=== PATIENT | female | born 1990 | race Caucasian/White ===

== ENCOUNTER 2024-01-20 13:45 | Outpatient (CLI) | payer OTHER, SELFPAY | END 2024-01-20 13:46 | disposition home or self-care (01) | LOC: NFLDREF 13:48 | PROVIDERS: Visit Provider Obstetrics & Gynecology | DX: Z13.220 Encounter for screening for lipoid disorders (principal) | CPT/HCPCS: 80061 ==

== ENCOUNTER 2024-03-03 12:30 | Outpatient (REF) | payer OTHER, SELFPAY ==
[2024-03-03 13:14] LABS: HCG Quantitative* 17.21 mIU/mL
== END 2024-03-03 12:31 | disposition home or self-care (01) ==
LOC: NPINS 12:30
PROVIDERS: Obstetrics & Gynecology
DX: Z32.00 Encounter for pregnancy test, result unknown (principal)
CPT/HCPCS: 84702

== ENCOUNTER 2024-03-09 11:40 | Outpatient (CLI) | payer OTHER, SELFPAY ==
[2024-03-09 12:39] LABS: HCG Quantitative* < 2.39 mIU/mL
== END 2024-03-09 11:41 | disposition home or self-care (01) ==
PROVIDERS: Visit Provider Obstetrics & Gynecology
DX: Z32.00 Encounter for pregnancy test, result unknown (principal); N98.1 Hyperstimulation of ovaries
CPT/HCPCS: 36415; 84702

== ENCOUNTER 2024-06-01 10:14 | Outpatient (REF) | payer OTHER, SELFPAY | END 2024-06-01 10:15 | disposition home or self-care (01) | LOC: NPINS 10:14 | PROVIDERS: Visit Provider Obstetrics & Gynecology | DX: O09.811 Supervision of pregnancy resulting from assisted reproductive technology, first trimester (principal) | CPT/HCPCS: 84702 ==

== ENCOUNTER 2024-06-02 07:34 | Outpatient (CLI) | payer OTHER, SELFPAY ==
--- NOTE | 2024-06-02 08:00 | CRLHL7_ITS ---
For Patients: As a result of the Century Cures Act, medical imaging exams and procedure reports are released immediately into your electronic medical record. You may view this report before your referring provider. If you have questions, please contact your health care provider. INDICATION: Evaluate viability. IVF transfer with estimated date of delivery 01/27/2025 (gestational age 5 weeks 6 days). TECHNIQUE: Ultrasound OB pelvis transvaginal. Real-time blackburn-scale imaging of the pelvis was performed. COMPARISON: None available. FINDINGS: There is a single intrauterine gestation. The embryo demonstrates a regular cardiac rate measuring 97 beats per minute. The embryo`s crown rump length measurement of 0.2 cm corresponds to a gestational age of 5 weeks 5 days with a sonographic due date of 01/28/2025. There is a normal appearing yolk sac. There is no sign of perigestational hemorrhage. There is an irregular hypoechoic intramural fibroid along the left aspect of the uterine body measuring 1.3 x 1.1 x 1.3 cm. The ovaries are of normal size. Right ovary measures 3.0 x 1.9 x 1.6 cm and left ovary measures 3.3 x 2.1 x 1.4 cm. There are no suspicious fluid collections noted in the cul-de-sac. IMPRESSION: 1. Single intrauterine gestation with sonographic gestational age of 5 weeks 5 days. 2. bradycardia with heart rate of 97 beats per minute. Recommend attention on follow-up examinations. 3. Intramural uterine fibroid measuring 1.3 cm. Dictated by Xi Johns MD @ 06/02/2024 9:01:47 AM (Electronically Signed)
== END 2024-06-02 07:35 | disposition home or self-care (01) ==
LOC: US 07:35
PROVIDERS: Visit Provider Obstetrics & Gynecology
DX: O09.811 Supervision of pregnancy resulting from assisted reproductive technology, first trimester (principal); O34.11 Maternal care for benign tumor of corpus uteri, first trimester; D25.1 Intramural leiomyoma of uterus; Z3A.01 Less than 8 weeks gestation of pregnancy
CPT/HCPCS: 76817

== ENCOUNTER 2024-06-16 09:07 | Outpatient (CLI) | payer OTHER, SELFPAY ==
--- NOTE | 2024-06-16 09:15 | CRLHL7_ITS ---
For Patients: As a result of the Cures Act, medical imaging exams and procedure reports are released immediately into your electronic medical record. You may view this report before your referring provider. If you have questions, please contact your health care provider. INDICATION: f/u low heart tones COMPARISON: 06/02/2024 TECHNIQUE: Real-time blackburn-scale imaging of the pelvis was performed. FINDINGS: Sonographic imaging demonstrates a single living intrauterine gestation. The embryo demonstrates a regular cardiac rate measuring 178 beats per minute. The embryo`s crown-rump length measurement of 1.5 cm corresponds to a gestational age of 7 weeks 6 days with a sonographic due date of 01/27/2025. There is a normal-appearing yolk sac. There are no gross abnormalities noted within the embryo at this early state of development. The gestational sac has a normal appearance. There is a right inferior perigestational hemorrhage measuring 2.4 x 1.4 x 1.5 cm and a left inferior perigestational hemorrhage measuring 2.8 x 1.8 x 1.9 cm. The amount of fluid within the sac appears appropriate for gestational age. The cervix is closed. The myometrium appears normal. Normal right ovary. There are no suspicious fluid collections noted in the cul-de-sac. IMPRESSION: Single living intrauterine with sonographic gestational age 7 weeks 6 days and a sonographic due date of 01/27/2025. There are 2 inferior subchorionic hemorrhages measuring 2.4 cm and 2.8 cm. Dictated by Chris Soto MD @ 06/16/2024 10:54:34 AM (Electronically Signed)
== END 2024-06-16 09:08 | disposition home or self-care (01) ==
LOC: US 09:07
PROVIDERS: Visit Provider Obstetrics & Gynecology
DX: O36.8310 Maternal care for abnormalities of the fetal heart rate or rhythm, first trimester, not applicable or unspecified (principal); O20.9 Hemorrhage in early pregnancy, unspecified; Z3A.01 Less than 8 weeks gestation of pregnancy
CPT/HCPCS: 76817

== ENCOUNTER 2024-06-16 10:36 | Outpatient (CLI) | payer OTHER, SELFPAY | END 2024-06-16 10:37 | disposition home or self-care (01) | PROVIDERS: Visit Provider Registered Nurse | DX: Z34.01 Encounter for supervision of normal first pregnancy, first trimester (principal); E03.8 Other specified hypothyroidism; E06.3 Autoimmune thyroiditis; Z67.40 Type O blood, Rh positive | CPT/HCPCS: 84439; 84443; 86592; 86703; 86704; 86706; 86762; 86787; 86803; 86850; 86900; 86901; 87086; 87340; 87624 ==

== ENCOUNTER 2024-07-13 09:54 | Outpatient (CLI) | payer OTHER, SELFPAY | END 2024-07-13 09:55 | disposition home or self-care (01) | LOC: NFLDREF 07-17 04:10 | PROVIDERS: Visit Provider Obstetrics & Gynecology | DX: E03.8 Other specified hypothyroidism (principal); E06.3 Autoimmune thyroiditis | CPT/HCPCS: 84439; 84443 ==

== ENCOUNTER 2024-07-15 16:28 | Emergency (ER) | payer OTHER, SELFPAY ==
[2024-07-15 16:33] VITALS: BP 143/80; PULSE 94; RESP 20; TEMP 36.8; O2SAT 100; BMI 30.1
--- NOTE | 2024-07-15 16:38 | ED_ITS ---
HPI - General Time Seen by Provider: 16:38 Date Seen: 07/15/24 Chief complaint: Vaginal Bleeding Stated complaint: vaginal bleeding Time Seen by Provider: 07/15/24 16:30 Source: patient, RN notes reviewed and old records reviewed Mode of arrival: ambulatory Limitations: no limitations History of Present Illness HPI Narrative: This 34-year-old female is coming in with reddish 2 some pinkish vaginal discharge with current about 12 weeks estimated gestational age. Patient is a 2, did have 1 prior loss. She has had IVF for her pregnancies. This current has estimated due date of 01/27/2025. Patient notes that the vaginal bleeding started after she was straining to have a bowel movement. She has suffered with constipation since starting all of the medications in hormones for the IVF. She also has history of cervical cancer that was treated with conization and robotic assisted pelvic lymph node dissection, cervical cancer is FIGO stage IB1, has not completed any chemotherapy or radiation. She did have a normal Pap smear in June with this , endocervical canal sampling not done due to the . She is hypothyroid, did have her Synthroid adjusted and is being followed through this . She has went through 2 pads now, did just go to the bathroom and that is when she noted she had blood through the 2nd pad. It is reddish blood to sometimes pinkish. Symptoms just started this afternoon prior to arrival. No significant abdominal cramping, maybe a little pressure. No fevers or chills, no urinary symptoms. The pads that she has went through are mini pads. Related Data Home Medications ?Medication ?Instructions ?Recorded ?Confirmed cholecalciferol (vitamin D3) 125 125 mcg PO QDAY 01/20/24 07/13/24 mcg (5,000 unit) capsule docosahexaenoic acid 200 mg mg PO DAILY 01/20/24 07/13/24 capsule ( DHA) aspirin 81 mg tablet,delayed 81 mg PO QDAY 07/13/24 07/15/24 release pyridoxine (vitamin B6) 25 mg 25 mg PO QDAY 07/13/24 07/13/24 tablet Previous Rx's ?Medication ?Instructions ?Recorded scopolamine base 1 mg over 3 days 1 patch transdermal Q3D PRN motion 01/20/24 transdermal patch sickness #4 ea levothyroxine 175 mcg tablet 175 mcg PO QDAY #30 tabs 06/17/24 levothyroxine 150 mcg tablet 150 mcg PO QDAY #30 tabs 07/13/24 Allergies Allergy/AdvReac Type Severity Reaction Status Date / Time Nitrofuran Analogues Allergy Verified 07/13/24 09:12 sulfamethoxazole Allergy Verified 07/13/24 09:12 [From Bactrim] trimethoprim [From Bactrim] Allergy Verified 07/13/24 09:12 [facility] Medical History (Updated 07/15/24 @ 18:23 by Ila Magallon MD) Depression with anxiety ?F41.8 - Other specified anxiety disorders (ICD-10) Surgical History (Updated 07/13/24 @ 09:43 by Noni Drummond MD) H/O dilation and curettage ?Z98.890 - Other specified postprocedural states (ICD-10) H/O sentinel lymphadenectomy ?Z98.890 - Other specified postprocedural states (ICD-10) H/O cone biopsy of cervix ?Z98.890 - Other specified postprocedural states (ICD-10) Family History Other Breast cancer Diabetes High cholesterol Stroke Thyroid disease 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 What is your current living situation?: I presently have a place to live Problems where you live: no known problems In the past 12 months, utilities in danger of being shut off: no In past 12 months, lack of transportation kept you from medical appts, meetings, work, or getting things needed for daily living: no In the past 12 mos, have been you worried that your food would run out before you had money to buy more?: never true In the past 12 mos, the food you bought just didn't last and you didn't have money to buy more?: never true Smoking Status: Former smoker Do you use any of these nicotine containing products: Vaping Products Non-prescribed substance use: denies use How often does anyone, including family, friends and others, physically hurt you : never How often does anyone, including family, friends and others, insult or talk down to you: never How often does anyone, including family, friends and others, threaten you with harm: never How often does anyone, including family, friends and others, scream or curse at you: never Little interest or pleasure in doing things: not at all Feeling down, depressed, or hopeless: not at all Exam Const: Vital Signs, click to edit/add: Vital Signs - 24 hr 07/15/24 16:33 Temperature 98.3 F Pulse Rate [Pulse Oximeter] 94 Respiratory Rate 20 Blood Pressure [Ri ght Upper Arm] 143/80 H Pulse Oximetry 100 Oxygen Delivery Me thod Room Air This 34-year-old female he is ambulatory into the ED of her own accord. She is alert, interactive, no apparent distress but obviously is concerned. CV regular rate and rhythm, no murmur. Lungs clear anteriorly. Abdomen is soft, nontender, nondistended, no rebound or guarding. Pelvic exam deferred at this point. Documenting provider has reviewed patient's vital signs: yes Course Course ED Course: Discussed with patient that we will be ordering an ultrasound immediately. Reviewed with her that I will talk to obstetric so on-call regarding her case. She certainly may need pelvic examination but will await ultrasound in on conversation with OB before this is done. She is not having any profuse bleeding at this time that would require any IV resuscitation. Her blood type is O positive, antibody screen negative. No laboratory evaluation at this time but if bleeding is progressively worsening, will need to consider IV placement, fluid resuscitation and basic labs. Reevaluation(s) Time of Reevaluation #1: 18:20 Reevaluation #1: Patient is given a copy of the ultrasound, she states she is known to have fibroid in the uterus. She has a follow-up with OB next week, she is aware to return if of concerning signs and symptoms of bleeding or worsening. Consultations Consultation #1: Did call OB Dr. Aragon to review case with her. She is currently detained in a procedure, will call me back as soon as she is able. Reviewed with nursing staff that there is no urgency, we will obtain ultrasound, just want to review this case with her to make sure that nothing further needs to be done. 5:07 p.m.: Did speak with Dr. Aragon and reviewed this case. We are waiting the ultrasound results, she will plan on doing a speculum exam given the history. Per OB, no mass seen, no concerns on physical examination. We are still awaiting the formal reading of the ultrasound. Her prior ultrasound did have subchorionic hemorrhage. 6:18 p.m.: Did call Ob back, reviewed ultrasound report. She will talk to MFM or specialist in the near future, patient will be given a close interval follow- up per OB. Time: 16:51 Vital Signs Vital signs: Initial Vital Signs Temperature 98.3 F 07/15/24 16:33 Temperature Source Temporal Artery Scan 07/15/24 16:33 Pulse Rate 94 07/15/24 16:33 Respiratory Rate 20 07/15/24 16:33 Blood Pressure 143/80 H 07/15/24 16:33 Blood Pressure Mean 101 07/15/24 16:33 Pulse Oximetry 100 07/15/24 16:33 Oxygen Delivery Method Room Air 07/15/24 16:33 Vital Signs Temperature 98.3 F 07/15/24 16:33 Pulse Rate 94 07/15/24 16:33 Respiratory Rate 20 07/15/24 16:33 Blood Pressure 143/80 H 07/15/24 16:33 Pulse Oximetry 100 07/15/24 16:33 Oxygen Delivery Method Room Air 07/15/24 16:33 Temperature 98.3 F 07/15/24 16:33 Pulse Rate 94 07/15/24 16:33 Respiratory Rate 20 07/15/24 16:33 Blood Pressure 143/80 H 07/15/24 16:33 Pulse Oximetry 100 07/15/24 16:33 Oxygen Delivery Method Room Air 07/15/24 16:33 MDM - OB/Uterine Contractions Lab Data Attestation: I reviewed the patient's lab results. Labs: Lab Results 07/15/24 Range/Units 17:50 Vaginal Trichomonas No Trichomonas Seen (None Seen) Vaginal Yeast No Yeast Seen (None Seen) Vaginal Clue Cells No Clue Cells Seen (None Seen) Imaging Data US OB: Attestation: I have reviewed the pertinent imaging results. Radiologist's impression: Patient: URI HAMM Facility:?[facility] Patient ID:?[id number] Site Patient ID:?[id number]. Site :?[id number] Study:?US-OB Pelvis Transvaginal-07/15/2024 5:38:38 PM Ordering Physician:?Sherita Thorpe Final Report: Indication: bleeding in GIOVANNA: 01/27/2025 Technique: Real-time sonographic images of the pelvis were obtained transabdominally using grayscale, color, and Doppler imaging. Comparison: 06/16/2024, 06/02/2024. Findings: Cervix is closed, measuring 3.0 centimeter in length. Uterus: 3.0 x 2.7 x 2.4 centimeter mass is again seen in the lower uterine segment. Gestational sac: 2 small subchorionic hemorrhages are again seen. pole: [place]-rump length measures 5.8 centimeter, compatible with an average ultrasound age of 12 weeks 2 days. Yolk sac: Not visualized. heart rate: 163 beats/min. Right ovary: Not visualized. Left ovary: Size: 2.4 x 1.6 x 1.8 centimeter. Appearance: Normal morphology. No masses. Bladder: Visualized bladder is normal. Other: No free fluid. Impression: 1. Single live intrauterine with crown-rump length corresponding to 12 weeks 2 days. 2. 2 small subchorionic hemorrhages are again seen. 3. 3.0 x 2.7 x 2.4 centimeter mass is again seen in the lower uterine segment, which may represent a uterine fibroid; this previously measured 1.3 centimeter 06/02/2024. Recommend continued attention on follow-up given interval change since 06/02/2024. Dictated by Reese Cuenca MD @ 07/15/2024 6:09:58 PM (Electronic Signature) Discharge Plan Discharge Clinical Impression: Vaginal bleeding affecting early , Subchorionic hemorrhage in first trimester Patient Disposition: Home, Self-Care Condition: Stable Instructions: Subchorionic Hemorrhage (ED) Additional Instructions: Follow obstetric recommendations of no heavy lifting, no strenuous physical activity, pelvic rest. If the bleeding is increasing, have further concerns, please seek re-evaluation in the interim. Keep your OB appointment next week. Activity Level: No strenuous activity and Light activity Prescriptions: No Action DHA 200 mg capsule PO DAILY cholecalciferol (vitamin D3) 125 mcg (5,000 unit) capsule 125 mcg PO QDAY scopolamine base 1 mg over 3 days patch 3 day 1 patch transdermal Q3D PRN (Reason: motion sickness) Qty: 4 0RF aspirin 81 mg tablet,delayed release (DR/EC) 81 mg PO QDAY pyridoxine (vitamin B6) 25 mg tablet 25 mg PO QDAY levothyroxine 175 mcg tablet 175 mcg PO QDAY Qty: 30 0RF levothyroxine 150 mcg tablet 150 mcg PO QDAY Qty: 30 1RF Follow Up/Referrals: Provider,Not a Local [Primary Care Provider] - Stand Alone Forms: [employer] Info Instructions
--- NOTE | 2024-07-15 16:48 | CRLHL7_ITS ---
For Patients: As a result of the Century Cures Act, medical imaging exams and procedure reports are released immediately into your electronic medical record. You may view this report before your referring provider. If you have questions, please contact your health care provider. Indication: bleeding in GIOVANNA: 01/27/2025 Technique: Real-time sonographic images of the pelvis were obtained transabdominally using grayscale, color, and Doppler imaging. Comparison: 06/16/2024, 06/02/2024. Findings: Cervix is closed, measuring 3.0 centimeter in length. Uterus: 3.0 x 2.7 x 2.4 centimeter mass is again seen in the lower uterine segment. Gestational sac: 2 small subchorionic hemorrhages are again seen. pole: [place]-rump length measures 5.8 centimeter, compatible with an average ultrasound age of 12 weeks 2 days. Yolk sac: Not visualized. heart rate: 163 beats/min. Right ovary: Not visualized. Left ovary: Size: 2.4 x 1.6 x 1.8 centimeter. Appearance: Normal morphology. No masses. Bladder: Visualized bladder is normal. Other: No free fluid. Impression: 1. Single live intrauterine with crown-rump length corresponding to 12 weeks 2 days. 2. 2 small subchorionic hemorrhages are again seen. 3. 3.0 x 2.7 x 2.4 centimeter mass is again seen in the lower uterine segment, which may represent a uterine fibroid; this previously measured 1.3 centimeter 06/02/2024. Recommend continued attention on follow-up given interval change since 06/02/2024. Dictated by Reese Cuenca MD @ 07/15/2024 6:09:58 PM (Electronically Signed)
[2024-07-15 18:11] LABS: Clue Cells No Clue Cells Seen (None Seen); Trichomonas No Trichomonas Seen (None Seen); Yeast No Yeast Seen (None Seen)
--- NOTE | 2024-07-15 20:37 | PM.OBCN1 ---
OB - CN: HPI Date of Consult Date Seen: 07/15/24 Patient: [facility] Patient Consult date: 07/15/24 Primary Care Provider: Not a Local Provider Consult Narrative Narrative: Mary is a 34yo at 12w0d GA seen in the ED for vaginal bleeding. is complicated by a history of cervical cancer (stage 1B1, treated with conization at [facility]), IVF gestation, hypothyroidism, subchorionic hemorrhage. Child Day Care Teacher consult was requested in the setting of vaginal bleeding with her history of cervical cancer to complete pelvic exam. Brief history was affirmed, where Mary noted onset of pink discharge/fluid after straining to have a BM. She then noted onset of laureano vaginal bleeding, soaking about a half dollar size of a thin pad per hour. She notes no significant abdominal or pelvic pain. Denies abnormal vaginal discharge, itching or burning. Last intercourse was 3 days prior to onset of bleeding. She has no fevers/chills, nausea/vomiting. No new sexual partners. Prior to my presentation to the bedside, pelvic US was obtained. CRL is consistent with her GA, positive cardiac activity noted at 163bpm. Of note, on formal radiology read there is note of a 3cm lower uterine segment mass, which may represent a fibroid. Notably, it has increased in size from 1.3cm on 06/02/24. There was re-demonstration of two small subchorionic hemorrhages. Pelvic US impression: 1. Single live intrauterine with crown-rump length corresponding to 12 weeks 2 days. 2. 2 small subchorionic hemorrhages are again seen. 3. 3.0 x 2.7 x 2.4 centimeter mass is again seen in the lower uterine segment, which may represent a uterine fibroid; this previously measured 1.3 centimeter 06/02/2024. Recommend continued attention on follow-up given interval change since 06/02/2024. History History 2 Elective abortions Para 0 Spontaneous abortions 1 Hx # Term Pregnancies Ectopic pregnancies Hx # Pregnancies Multiple births Number of Living Children 0 PFSH PFSH Medical History (Updated 07/15/24 @ 18:23 by Ila Magallon MD) Depression with anxiety ?F41.8 - Other specified anxiety disorders (ICD-10) Surgical History (Updated 07/13/24 @ 09:43 by Noni Drummond MD) H/O dilation and curettage ?Z98.890 - Other specified postprocedural states (ICD-10) H/O sentinel lymphadenectomy ?Z98.890 - Other specified postprocedural states (ICD-10) H/O cone biopsy of cervix ?Z98.890 - Other specified postprocedural states (ICD-10) Family History Other Breast cancer Diabetes High cholesterol Stroke Thyroid disease 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 What is your current living situation?: I presently have a place to live Problems where you live: no known problems In the past 12 months, utilities in danger of being shut off: no In past 12 months, lack of transportation kept you from medical appts, meetings, work, or getting things needed for daily living: no In the past 12 mos, have been you worried that your food would run out before you had money to buy more?: never true In the past 12 mos, the food you bought just didn't last and you didn't have money to buy more?: never true Smoking Status: Former smoker Do you use any of these nicotine containing products: Vaping Products Non-prescribed substance use: denies use How often does anyone, including family, friends and others, physically hurt you: never How often does anyone, including family, friends and others, insult or talk down to you: never How often does anyone, including family, friends and others, threaten you with harm: never How often does anyone, including family, friends and others, scream or curse at you: never Little interest or pleasure in doing things: not at all Feeling down, depressed, or hopeless: not at all Meds Home Medications and Allergies Home Medications ?Medication ?Instructions ?Recorded ?Confirmed ?Type cholecalciferol (vitamin D3) 125 125 mcg PO QDAY 01/20/24 07/13/24 History mcg (5,000 unit) capsule docosahexaenoic acid 200 mg mg PO DAILY 01/20/24 07/13/24 History capsule ( DHA) aspirin 81 mg tablet,delayed 81 mg PO QDAY 10/07/24 10/09/24 History release pyridoxine (vitamin B6) 25 mg 25 mg PO QDAY 07/13/24 07/13/24 History tablet Allergies Allergy/AdvReac Type Severity Reaction Status Date / Time Nitrofuran Analogues Allergy Verified 07/13/24 09:12 sulfamethoxazole Allergy Verified 07/13/24 09:12 [From Bactrim] trimethoprim [From Bactrim] Allergy Verified 07/13/24 09:12 OB - H&P: Exam Physical Exam: Vital signs: Temp Pulse Resp BP Pulse Ox O2 Del Method 98.3 F 94 20 143/80 H 100 Room Air 07/15/24 16:33 07/15/24 16:33 07/15/24 16:33 07/15/24 16:33 07/15/24 16:33 07/15/24 16:33 Narrative: General: Alert and oriented, in no acute distress Psych: Appropriate mood and affect. Intermittently tearful. Abdomen: Soft, non-tender and non-distended Pelvic: External genital exam normal. Speculum inserted, small volume dark red blood noted in vaginal vault was evacuated with proctoswab x2. Cervix is visualized and appears unremarkable and closed. Specifically, there is no apparent mass/lesion or hyperemia, abnormal vessels of the ectocervix visualized. No active bleeding from os with valsalva. OB - CN: A/P Assessment and Plan (1) Subchorionic hemorrhage in first trimester: Status: Acute (2) Vaginal bleeding affecting early : Status: Acute (3) H/O cone biopsy of cervix: Problem details: Cold knife cone biopsy of cervix December 2022 Status: Acute (4) Cervical cancer, FIGO stage IB1: Problem details: Pap with HPV testing and endocervical curettage every 6 months until definitive surgery. Status: Acute Plan Mary is a 34yo seen at 12 weeks in the ED for first trimester bleeding. 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 US confirms viable fetus and re-demonstration of subchorionic hemorrhage. There is interval enlargement of a lower uterine segment mass vs fibroid, previously 1.3cm and now measuring 3.0cm. Pelvic exam is reassuring - where cervix is closed and there is no active bleeding coming from the os. There is no apparent cervical lass/lesion or concerning features. Pap test at [facility] was NIL/HPV negative, but ECC could not be performed in the setting of . We discussed the differential diagnosis of bleeding in early , including threatened miscarriage, subchorionic hemorrhage, vulvovaginal infection or recurrence of her cervical cancer. Given the enlarging mass/fibroid on US, I would recommend further characterization with pelvic MRI (non contrast due to ) to better evaluate given her history of cervical cancer with inability to complete ECC in . If concerning features are present, would refer back to [facility] Program Manager Environmental Planning Onc for discussion of further diagnostic evaluation though admittedly this could be limited in and no apparent ectocervical changes on my exam. I would recommend pelvic rest for the next 1 week so as to not incite further bleeding. Patient has upcoming MFM consultation at [facility] on 07/23. Offered close interval follow up in the clinic for FHR check, patient desires visit on 07/20 if available. Task sent. Strict return precautions were reinforced for heavy vaginal bleeding, pain, nausea/vomiting, fevers/chills.
== END 2024-07-15 18:44 | disposition home or self-care (01) ==
LOC: ED 18:40
PROVIDERS: Emergency Provider Family Medicine
DX: O46.8X1 Other antepartum hemorrhage, first trimester (principal); Z3A.12 12 weeks gestation of pregnancy
CPT/HCPCS: 76815; 76817; 87210; 99283; 99284

== ENCOUNTER 2024-07-18 17:31 | Emergency (ER) | payer OTHER, SELFPAY ==
[2024-07-18 17:36] VITALS: BP 134/90; PULSE 80; RESP 16; TEMP 36.9; O2SAT 100; BMI 30.1
--- NOTE | 2024-07-18 17:37 | ED_ITS ---
HPI - General Time Seen by Provider: 17:37 Date Seen: 07/18/24 Chief complaint: Vaginal Bleeding Stated complaint: bleeding - 12 wks Time Seen by Provider: 07/18/24 17:33 Source: patient and RN notes reviewed Mode of arrival: ambulatory Limitations: no limitations History of Present Illness HPI Narrative: This 34-year-old female is coming back in with recurrent vaginal bleeding today. 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 She stood up and felt the gush, went to the bathroom there was bright red blood and some clots. She was in the ER on 07/15/2024 with vaginal bleeding, Ob was consulted. This is an IVF , had 1 prior failed IVF . Her current estimated due date is 01/27/2025. When we saw her on the , she states she had no further bright red bleeding, settle to some pinkish and then brownish discharge and was gone by Saturday night. Today is now Saturday and bleeding has started again. She did have 2 small subchorionic hemorrhages. She had a live intrauterine . There was a probable fibroid in her lower uterine segment which she was aware of. She continues with constipation. She also has history of cervical cancer treated with conization and robotic assisted pelvic lymph node dissection, cervical cancer is FIGO stage I B1. She is not completed definitive therapy, no chemotherapy or radiation in lieu of wanting fertility and conception. Her Pap smear was normal in June with this but endocervical canal sampling was not done because of the . She is hypothyroid, Synthroid and lab monitoring has been appropriate thus far in . She did talk to Dr. Drummond whom is on-call, recommended re-evaluation for change in status. Patient has noted she has felt a little dizzy the last few days, not sure if it is just from or perhaps from blood loss. Patient's blood type is O positive with negative antibody screen. No abdominal pain. Related Data Home Medications ?Medication ?Instructions ?Recorded ?Confirmed cholecalciferol (vitamin D3) 125 125 mcg PO QDAY 01/20/24 07/13/24 mcg (5,000 unit) capsule docosahexaenoic acid 200 mg mg PO DAILY 01/20/24 07/13/24 capsule ( DHA) aspirin 81 mg tablet,delayed 81 mg PO QDAY 10/07/24 10/09/24 release pyridoxine (vitamin B6) 25 mg 25 mg PO QDAY 07/13/24 07/13/24 tablet Previous Rx's ?Medication ?Instructions ?Recorded scopolamine base 1 mg over 3 days 1 patch transdermal Q3D PRN motion 01/20/24 transdermal patch sickness #4 ea levothyroxine 175 mcg tablet 175 mcg PO QDAY #30 tabs 06/17/24 levothyroxine 150 mcg tablet 150 mcg PO QDAY #30 tabs 07/13/24 Allergies Allergy/AdvReac Type Severity Reaction Status Date / Time Nitrofuran Analogues Allergy Verified 07/18/24 17:48 sulfamethoxazole Allergy Verified 07/18/24 17:48 [From Bactrim] trimethoprim [From Bactrim] Allergy Verified 07/18/24 17:48 Review of Systems Status of ROS: Reports: 6 or more systems reviewed and unremarkable except as noted in History and below PFSH PFS Medical History Depression with anxiety ?F41.8 - Other specified anxiety disorders (ICD-10) Surgical History H/O dilation and curettage ?Z98.890 - Other specified postprocedural states (ICD-10) H/O sentinel lymphadenectomy ?Z98.890 - Other specified postprocedural states (ICD-10) H/O cone biopsy of cervix ?Z98.890 - Other specified postprocedural states (ICD-10) Family History Other Breast cancer Diabetes High cholesterol Stroke Thyroid disease 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 What is your current living situation?: I presently have a place to live Problems where you live: no known problems In the past 12 months, utilities in danger of being shut off: no In past 12 months, lack of transportation kept you from medical appts, meetings, work, or getting things needed for daily living: no In the past 12 mos, have been you worried that your food would run out before you had money to buy more?: never true In the past 12 mos, the food you bought just didn't last and you didn't have money to buy more?: never true Smoking Status: Former smoker Do you use any of these nicotine containing products: Vaping Products Non-prescribed substance use: denies use How often does anyone, including family, friends and others, physically hurt you : never How often does anyone, including family, friends and others, insult or talk down to you: never How often does anyone, including family, friends and others, threaten you with harm: never How often does anyone, including family, friends and others, scream or curse at you: never Little interest or pleasure in doing things: not at all Feeling down, depressed, or hopeless: not at all Exam Const: Vital Signs, click to edit/add: Vital Signs - 24 hr 07/18/24 17:36 Temperature 98.5 F Pulse Rate [Pulse Oximeter] 80 Respiratory Rate 16 Blood Pressure [Ri ght Upper Arm] 134/90 H Pulse Oximetry 100 Oxygen Delivery Me thod Room Air Danica is a 34-year-old female that is alert, interactive, no apparent distress, ambulatory into the ED of her own accord. Face atraumatic, speak in complete sentences. CV regular rate and rhythm, no murmur. Lungs clear anteriorly. Abdomen is soft, nontender, no rebound or guarding. Pelvic exam deferred at this point. Documenting provider has reviewed patient's vital signs: yes Course Course ED Course: Will check a CBC on her. Will get repeat pelvic ultrasound. Ob did do a pelvic exam on her when she was in on the and there was no visible mass. Negative vaginitis panel from 07/15. This could be repeat bleeding from subchorionic hemorrhage. Unlikely to be miscarriage should but new bleeding does need to be evaluated for that. Will make sure that we have a live intrauterine with ultrasound. We will see where her hemoglobin is. If she has increased active bleeding, may need to place IV and do fluid or possibly blood resuscitation. Reevaluation(s) Time of Reevaluation #1: 18:20 Reevaluation #1: Did review hemoglobin with patient. No abdominal pain, no bleeding at this time. Time of Reevaluation #2: 20:44 Reevaluation #2: Patient was just up to the bathroom, did have some more bleeding. She still has no abdominal pain. Reviewed with her that the ultrasound is showing increased size of that area in the lower uterine segment, still has the 2 small subchorionic hemorrhages. Unclear why this area in the lower uterine segment is increasing. She tells me that Dr. Aragon did speak he even with her oncologist on Saturday, they are recommending MRI but a more advanced MRI than what we can do here in our facility. Have discussed with patient that if her bleeding is not subsiding with relative bed rest, increases at all, I do recommend that she proceed to [place] as long as the bleeding is not heavy enough that she needs emergent intervention. She may need to have the MRI done more urgently if the bleeding is not stopping or starts to increase. Thankfully the fetus is still looking good, has good heartbeat. She is aware that I spoke with Dr. Drummond. Dr. Drummond has recommended she stop her aspirin in the interim. Consultations Consultation #1: Spoke with Dr. Drummond OB on-call. She is aware of this patient, she was able to tell me that they have spoken with [place] on her, MRI is to be scheduled. She would recommend stopping aspirin, relative bed rest at this point. We need to await MRI to be done, have no capacity to do it tonight. Patient clinically does not needed emergently. Time: 20:27 Vital Signs Vital signs: Initial Vital Signs Temperature 98.5 F 07/18/24 17:36 Temperature Source Temporal Artery Scan 07/18/24 17:36 Pulse Rate 80 07/18/24 17:36 Respiratory Rate 16 07/18/24 17:36 Blood Pressure 134/90 H 07/18/24 17:36 Blood Pressure Mean 104 07/18/24 17:36 Blood Pressure Position High-Fowlers 07/18/24 17:36 Pulse Oximetry 100 07/18/24 17:36 Oxygen Delivery Method Room Air 07/18/24 17:36 Vital Signs Temperature 98.5 F 07/18/24 17:36 Pulse Rate 80 07/18/24 17:36 Respiratory Rate 16 07/18/24 17:36 Blood Pressure 134/90 H 07/18/24 17:36 Pulse Oximetry 100 07/18/24 17:36 Oxygen Delivery Method Room Air 07/18/24 17:36 Temperature 98.5 F 07/18/24 17:36 Pulse Rate 80 07/18/24 17:36 Respiratory Rate 16 07/18/24 17:36 Blood Pressure 134/90 H 07/18/24 17:36 Pulse Oximetry 100 07/18/24 17:36 Oxygen Delivery Method Room Air 07/18/24 17:36 MDM - OB/Uterine Contractions Lab Data Attestation: I reviewed the patient's lab results. Lab results narrative: Patient's hemoglobin on 06/16/2024 was 13.7. Labs: Lab Results 07/18/24 Range/Units 17:56 WBC 8.27 (4.50-11.00) K/uL RBC 3.81 L (4.00-5.20) m/uL Hgb 11.7 L (12.0-16.0) gm/dL Hct 35.9 (33.0-51.0) % MCV 94 (80-100) fL MCH 31 (26-34) pg MCHC 33 (32-36) gm/dL RDW Coeff of [place] 11.8 (11.5-15.5) % Plt Count 282 (140-440) K/uL Neut % (Auto) 57.2 (42.0-72.0) % Lymph % (Auto) 32.9 (20-44) % [place] % (Auto) 7.6 (0.0-11.0) % Eos % (Auto) 1.5 (0.0-7.0) % Baso % (Auto) 0.4 (0.0-3.0) % Neut # (Auto) 4.74 (1.7-7.0) K/uL Lymph # (Auto) 2.72 (0.90-2.90) K/uL [place] # (Auto) 0.60 (0.00-0.90) K/UL Eos # (Auto) 0.12 (0.00-0.50) K/uL Baso # (Auto) 0.03 (0.00-0.30) K/uL Abs Immat Gran (auto) 0.03 (0.00-0.30) K/uL Imm/Tot Granulo (auto) 0.4 % Imaging Data US OB: Attestation: I have reviewed the pertinent imaging results. Radiologist's impression: Patient: URI HAMM Facility:?[facility] Patient ID:?[id number] Site Patient ID:?[id number]. Site :?[id number] Study:?US-OB Pelvis viability-07/18/2024 6:52:03 PM Ordering Physician:Jyothi Thorpe Final Report: INDICATION: Bleeding. COMPARISON: OB ultrasound 07/15/2024. TECHNIQUE: Real-time blcakburn-scale imaging of the pelvis was performed. FINDINGS: Sonographic imaging demonstrates a single living intrauterine gestation. The embryo has a regular cardiac rate measuring 159 beats per minute. The embryo`s crown-rump length measures 6.0 cm which corresponds to a gestational age of 12 weeks 3 days with sonographic due date 01/27/2025. There is a developing placenta. There is a 2.8 x 1.9 x 1.2 cm subchorionic hemorrhage in the right uterus and a 2.3 x 1.3 x 0.7 cm subchorionic hemorrhage in the left uterus. Persistent complex area in the lower uterine segment measuring 4.4 x 2.3 x 5.3 cm today compared to 3.0 x 2.7 x 2.4 cm previously. Color flow was not applied over this region. The uterus measures 13.4 x 8.8 x 10.0 cm. The ovaries were not visualized. No free fluid in the pelvic cul-de-sac. IMPRESSION: 1. Single living intrauterine gestation corresponding to an ultrasound gestational age of 12 weeks 3 days with sonographic due date 01/27/2025. 2. Two small subchorionic hemorrhages in the right and left uterus. 3. Persistent complex area in the lower uterine segment which has slightly increased in size since prior exam. This may represent an additional subchorionic hemorrhage but is indeterminate. Continued follow-up is recommended. Dictated by Usha Hoffmann MD @ 07/18/2024 8:25:19 PM (Electronic Signature) Discharge Plan Discharge Clinical Impression: Vaginal bleeding during Subchorionic hemorrhage Qualifiers: Trimester: first trimester Qualified Code(s): O20.8 - Other hemorrhage in early Patient Disposition: Home, Self-Care Condition: Stable Instructions: Subchorionic Hemorrhage (ED) Additional Instructions: Recommend relative rest, no work at this point. Continue to monitor bleeding. If bleeding is not slowing down with rest, increases at all, recommend going to [place] for further management and evaluation. Otherwise, if bleeding is slowing with resting and stopping the aspirin, work on Saturday to get your MRI scheduled. If there ever is any concern about heavy bleeding starting, please seek emergent evaluation at the nearest ER. Activity Level: No strenuous activity and Light activity Prescriptions: No Action DHA 200 mg capsule PO DAILY cholecalciferol (vitamin D3) 125 mcg (5,000 unit) capsule 125 mcg PO QDAY scopolamine base 1 mg over 3 days patch 3 day 1 patch transdermal Q3D PRN (Reason: motion sickness) Qty: 4 0RF aspirin 81 mg tablet,delayed release (DR/EC) 81 mg PO QDAY pyridoxine (vitamin B6) 25 mg tablet 25 mg PO QDAY levothyroxine 175 mcg tablet 175 mcg PO QDAY Qty: 30 0RF levothyroxine 150 mcg tablet 150 mcg PO QDAY Qty: 30 1RF Follow Up/Referrals: Provider,Not a Local [Primary Care Provider] - Stand Alone Forms: [employer] Info Instructions
--- NOTE | 2024-07-18 17:37 | CRLHL7_ITS ---
For Patients: As a result of the Cures Act, medical imaging exams and procedure reports are released immediately into your electronic medical record. You may view this report before your referring provider. If you have questions, please contact your health care provider. INDICATION: Bleeding. COMPARISON: OB ultrasound 07/15/2024. TECHNIQUE: Real-time blackburn-scale imaging of the pelvis was performed. FINDINGS: Sonographic imaging demonstrates a single living intrauterine gestation. The embryo has a regular cardiac rate measuring 159 beats per minute. The embryo`s crown-rump length measures 6.0 cm which corresponds to a gestational age of 12 weeks 3 days with sonographic due date 01/27/2025. There is a developing placenta. There is a 2.8 x 1.9 x 1.2 cm subchorionic hemorrhage in the right uterus and a 2.3 x 1.3 x 0.7 cm subchorionic hemorrhage in the left uterus. Persistent complex area in the lower uterine segment measuring 4.4 x 2.3 x 5.3 cm today compared to 3.0 x 2.7 x 2.4 cm previously. Color flow was not applied over this region. The uterus measures 13.4 x 8.8 x 10.0 cm. The ovaries were not visualized. No free fluid in the pelvic cul-de-sac. IMPRESSION: 1. Single living intrauterine gestation corresponding to an ultrasound gestational age of 12 weeks 3 days with sonographic due date 01/27/2025. 2. Two small subchorionic hemorrhages in the right and left uterus. 3. Persistent complex area in the lower uterine segment which has slightly increased in size since prior exam. This may represent an additional subchorionic hemorrhage but is indeterminate. Continued follow-up is recommended. Dictated by Usha Hoffmann MD @ 07/18/2024 8:25:19 PM (Electronically Signed)
[2024-07-18 18:02] LABS: Basophils Absolute Auto 0.03 K/uL (0.00-0.30); Basophils Percent Auto 0.4 % (0.0-3.0); Eosinophils Absolute Auto 0.12 K/uL (0.00-0.50); Eosinophils Percent Auto 1.5 % (0.0-7.0); Hematocrit 35.9 % (33.0-51.0); Hemoglobin* 11.7 gm/dL (12.0-16.0); Immature Granulocytes Abs Auto 0.03 K/uL (0.00-0.30); Immature Granulocytes Pct Auto 0.4 %; Lymphocytes Absolute Auto 2.72 K/uL (0.90-2.90); Lymphocytes Percent Auto 32.9 % (20-44); Mean Corpuscular HGB Conc 33 gm/dL (32-36); Mean Corpuscular Hemoglobin 31 pg (26-34); Mean Corpuscular Volume 94 fL (80-100); Monocytes Percent Auto 7.6 % (0.0-11.0); Neutrophils Absolute Auto 4.74 K/uL (1.7-7.0); Neutrophils Percent Auto 57.2 % (42.0-72.0); Platelet Count* 282 K/uL (140-440); RDW Coefficient of Variation % 11.8 % (11.5-15.5); Red Blood Count 3.81 m/uL (4.00-5.20); White Blood Count* 8.27 K/uL (4.50-11.00)
[2024-07-18 18:04] LABS: Slide Review Reflex No
[2024-07-18 20:55] VITALS: BP 124/78; PULSE 75; RESP 16; TEMP 36.9; O2SAT 100
[2024-07-18 20:56] VITALS: BP 124/78; PULSE 75; RESP 16; TEMP 36.9
== END 2024-07-18 20:56 | disposition home or self-care (01) ==
PROVIDERS: Emergency Provider Family Medicine
DX: O46.91 Antepartum hemorrhage, unspecified, first trimester (principal)
CPT/HCPCS: 36415; 76815; 85025; 99284

== ENCOUNTER 2024-08-10 09:09 | Outpatient (CLI) | payer OTHER, SELFPAY ==
--- NOTE | 2024-08-10 09:15 | CRLHL7_ITS ---
For Patients: As a result of the Century Cures Act, medical imaging exams and procedure reports are released immediately into your electronic medical record. You may view this report before your referring provider. If you have questions, please contact your health care provider. HISTORY: Follow-up subchorionic hemorrhage COMPARISON: Early OB ultrasound from 07/18/2024 TECHNIQUE: Ultrasound examination of the is performed with transabdominal technique. FINDINGS: A single intrauterine gestation is seen in breech presentation with regular cardiac activity at 152 beats per minute. The placenta is anterior and posterior and is free of the cervical os. There may be a succenturiate lobe of the placenta of posterior to the right. The placental grade is 0. The amniotic fluid volume is normal visually. There are 3 separate subchorionic hemorrhages, all of which have increased in size. The largest is in the lower uterine segment measuring 7.1 x 1.6 x 5.8 centimeters, previously 4.4 x 2.3 x 5.3 centimeters. There is a subchorionic hemorrhage superiorly to the right, measuring 4.0 x 1.2 x 2.9 centimeters, previously 2.8 x 1.9 x 1.2 centimeters. There is a left superior subchorionic hemorrhage measuring 4.0 x 2.0 x 1.2 centimeters, previously 2.3 x 1.3 x 0.7 centimeters. BPD: 3.3 cm 16 weeks 2 days HC: 12.6 cm 16 weeks 3 days AC: 10.2 cm 16 weeks 1 day, 69th percentile FL: 2.0 cm 15 weeks 6 days The estimated age by ultrasound is 16 weeks 1 day, with an estimated date of delivery of 01/24/2025. This correlates well with the clinical age of 15 weeks 5 days and the previous ultrasound. The ultrasound ratios are normal. Estimated weight is 140 grams which is at the 66th percentile based on the clinical dates. IMPRESSION: Single intrauterine gestation in breech presentation with regular cardiac activity. Estimated gestational age is 16 weeks 1 day. There has been appropriate interval growth. Estimated weight is 140 grams which is at the 66th percentile based on the clinical dates. Increase in size of 3 separate subchorionic hemorrhages as described above. Dictated by Reno Hernandes MD @ 08/10/2024 12:17:47 PM (Electronically Signed)
== END 2024-08-10 09:10 | disposition home or self-care (01) ==
LOC: US 09:09
PROVIDERS: Visit Provider Obstetrics & Gynecology
DX: O20.8 Other hemorrhage in early pregnancy (principal); O09.512 Supervision of elderly primigravida, second trimester; Z3A.15 15 weeks gestation of pregnancy
CPT/HCPCS: 76816

== ENCOUNTER 2024-08-10 09:40 | Outpatient (CLI) | payer OTHER, SELFPAY | END 2024-08-10 09:41 | disposition home or self-care (01) | LOC: NFLDREF 08-13 07:34 | PROVIDERS: Visit Provider Registered Nurse | DX: E03.8 Other specified hypothyroidism (principal); E06.3 Autoimmune thyroiditis | CPT/HCPCS: 84443 ==

== ENCOUNTER 2024-11-05 11:13 | Outpatient (CLI) | payer BC, SELFPAY | END 2024-11-05 11:14 | disposition home or self-care (01) | LOC: NFLDREF 11:14 | PROVIDERS: Visit Provider Obstetrics & Gynecology | DX: C53.9 Malignant neoplasm of cervix uteri, unspecified (principal); E03.8 Other specified hypothyroidism; E06.3 Autoimmune thyroiditis | CPT/HCPCS: 84439; 84443; 86592 ==

== ENCOUNTER 2024-12-01 07:20 | Outpatient (CLI) | payer BC, SELFPAY | END 2024-12-01 07:21 | disposition home or self-care (01) | LOC: US 07:21 | PROVIDERS: Visit Provider Obstetrics & Gynecology | DX: O09.813 Supervision of pregnancy resulting from assisted reproductive technology, third trimester (principal); Z3A.31 31 weeks gestation of pregnancy | CPT/HCPCS: 76816 ==

== ENCOUNTER 2024-12-31 10:14 | Outpatient (CLI) | payer BC, SELFPAY ==
[2025-01-01 12:28] LABS: Strep B DNA Probe POSITIVE (Negative)
[2025-01-01 12:47] LABS: Strep B Susceptibility Needed? No
== END 2024-12-31 10:15 | disposition home or self-care (01) ==
PROVIDERS: Visit Provider Obstetrics & Gynecology
DX: O09.813 Supervision of pregnancy resulting from assisted reproductive technology, third trimester (principal); O13.3 Gestational [pregnancy-induced] hypertension without significant proteinuria, third trimester; Z3A.36 36 weeks gestation of pregnancy
CPT/HCPCS: 87081; 87653

== ENCOUNTER 2025-01-04 07:13 | Outpatient (CLI) | payer BC, SELFPAY ==
--- NOTE | 2025-01-04 07:25 | CRLHL7_ITS ---
For Patients: As a result of the Century Cures Act, medical imaging exams and procedure reports are released immediately into your electronic medical record. You may view this report before your referring provider. If you have questions, please contact your health care provider. Indication: Assess growth. Assess well-being with a biophysical profile. Technique: Ultrasound examination of the gravid uterus was performed. The study is limited to biometry for growth evaluation and a standard biophysical profile. Comparison: December 01, 2024 Findings: Biophysical profile: The score is 6/8. Two points were deducted for decreased tone. There is a single living intrauterine gestation. Position is cephalic. The cervix was not visualized. The single deepest pocket is 7.3 centimeters. The placenta is anterior and there is no previa. heart rate ranges between 110 and 130 beats per minute Umbilical S/D ratio is 3.2. Less than 3.5 is considered normal. Biometry: BPD is 8.8 centimeters corresponding to 35 weeks and 2 days which is at the 24.8 percentile HC is 32.1 centimeters corresponding to 36 weeks and 2 days. This is at the 13.9 percentile AC is 30.1 centimeters corresponds to 34 weeks and 1 day. This is up to 4.7 percentile FL is 6.4 centimeters corresponds to 33 weeks and 0 days. This is at less than 3 percentile The FL/AC ratio is 21.2 percent. The HC/AC ratio is 1.1 age by ultrasound is 34 weeks and 5 days with an ultrasound estimated date of delivery of 02/10/2025. Current weight is 2354 grams which is at the 5.2 percentile Impression: 1. The biophysical profile score is 6/8. Two points were deducted for decreased tone during the time course of the exam. 2. There is a single live intrauterine that is cephalic. Cervix not visualized. Single deepest pocket 7.3 centimeters. Anterior placenta. No previa. 3. The placental S/D ratio is 3.2. Less than 3.5 is considered normal at this gestational age 4. heart rate ranged between 110 and 130 beats per minute 5. Biometry as above. 6. Current weight is 2354 grams which is at the 5.2 percentile, consistent with IUGR. Dictated by Oliver So MD @ 01/04/2025 8:35:15 AM (Electronically Signed)
== END 2025-01-04 07:14 | disposition home or self-care (01) ==
LOC: US 07:14
PROVIDERS: Visit Provider Obstetrics & Gynecology
DX: O09.523 Supervision of elderly multigravida, third trimester (principal); O36.5930 Maternal care for other known or suspected poor fetal growth, third trimester, not applicable or unspecified; O13.3 Gestational [pregnancy-induced] hypertension without significant proteinuria, third trimester; O26.873 Cervical shortening, third trimester; Z3A.36 36 weeks gestation of pregnancy
CPT/HCPCS: 76816; 76819; 76820; 82565; 82570; 84156; 84450; 84460

== ENCOUNTER 2025-01-04 08:16 | Outpatient (CLI) | payer BC, SELFPAY ==
[2025-01-04 17:47] LABS: Total Protein Urine 7 mg/dL
[2025-01-04 17:48] LABS: Creatinine Urine 121.1 mg/dL; Protein Creatinine Ratio Urine 0.06 (0-0.19)
== END 2025-01-04 08:17 | disposition home or self-care (01) ==
PROVIDERS: Obstetrics & Gynecology; Visit Provider Obstetrics & Gynecology
DX: O13.3 Gestational [pregnancy-induced] hypertension without significant proteinuria, third trimester (principal); Z3A.36 36 weeks gestation of pregnancy
CPT/HCPCS: 82565; 82570; 84156; 84450; 84460

== ENCOUNTER 2025-01-04 19:01 | Inpatient (IN) | payer BC, SELFPAY ==
[2025-01-04] VITALS (11 sets, daily range): BP systolic 128–154; BP diastolic 78–87; PULSE 63–82; TEMP 36.9–37.1; O2SAT 100; BMI 32.5
[2025-01-04] MEDS: miSOPROStoL 25 MCG/0.25 TABLET VAGINAL ×2 (20:35→23:46)
--- NOTE | 2025-01-04 21:15 | P.LDBA_ITS ---
Subjective History of Present Illness Date Seen: 01/04/25 Narrative: Patient is being admitted to Labor and Delivery for cervical ripening in preparation for labor induction secondary to IUGR with gestational hypertension, per ACOG guidelines. She is a 34 year old at 36 5/7 weeks gestation. Her full history and physical was dictated by me earlier today. Please see this for details. Specific Issues/Plans G 1 P 0 Baby boy! H&P by Dr. Headley on 01/04/2025. # New diagnosis of IUGR (EFW 5%) on 01/04/2025 - delivery indicated, will admit for cervical ripening on 01/04/2025 #Gestational HTN dx at 36w0d at [facility] w/ cerclage removal - Normal preE labs 12/30 at [facility] - 37 week IOL, scheduled 01/06 [x] Growth US and BPP on 01/04, repeat labs: Hgb 11.9, Platelets 228, AST 25, ALT 14, creatinine 0.6, urine P/C: [] # Cervical cancer 10/2022. FIGO stage 1B1 cervical cancer which was diagnosed in 2022 and treated at [facility] with conization and robotic assisted pelvic lymphadenectomy without chemotherapy or radiation. [id number] pap smears w/ ECC. * Pap completed at first OB. ECC was NOT completed with pap at first OB visit. -- ECC should NOT be completed during . * Colposcopy normal 07/24/2024. * Colposcopy w/ one biopsy on 11/05/24: Polypoid fragment of benign ectocervical mucosa. Negative for squamous intraepithelial and malignancy #Vaginal Bleeding ?BARB mass on US [x] AM discussed with her [place] Certified Endoscopy Technician Onc - concern is overall low but recommendations below [x] Colposcopy, biopsy of ANY suspicious lesion recommend by Certified Endoscopy Technician Onc: Colposcopy normal on 07/24/2024. [x] Pelvic MRI on T3 machine recommended (scheduled 07/27 locally but this is only 1.5T) -continuing subchorionic hemorrhage and a lesion in the lower uterine segment that was adjacent to the endocervix that was thought to represent uterine contraction during imaging. Cervix appeared normal. Lesion did not appear to be cervical neoplasia. [x] [place] MRI 08/14/24: area of mildly increased T2 signal within the left lower cervical os.... Does not have typical MRI features of a cervical carcinoma. Findings may reflect edematous changes from the recent cerclage placement as well as prior conization especially in the setting of normal colposcopy 1 month ago. Subchorionic hemorrhage was also noted. #short cervix due to prior cone biopsy * Wayne cerclage placed by Dr. Mercer 08/04/24. 6 knots at 12-1 o'clock. * Cerclage removed 12/30 at [facility] * *FYI they note cerclage was abnormal where they *think* it is all out, consider C/S if she does not dilate as anticipated* #FYI Vasovagals with cervical exam # IVF at [facility] in [place]. Unexplained infertility. On ASA, progesterone, estradiol; stopped E&P around 10 weeks. GIOVANNA based on embryo transfer: 01/27/25 Level 2 US - normal details below Echo on 10/13 was normal Growth US at 32 weeks - EFW 1672g at 15%ile, vertex, MVP 6.1cm Weekly NST starting at 36 weeks #Anxiety - started lexapro on 10/12 # AMA ASA 81mg ongoing as of 09/09 (held earlier due to bleeding) Genetic testing: completed prior to embryo transfer. Level 2 US # BMI 30.0, first , sister w/ h/o pre E Recommend daily baby ASA D/c on 07/18 due to 2 episode of bleeding PV that required evaluation in ED # Hypothyroidism. 200mcg levothyroxine. TSH and Free T4 Q trimester 06/16: TSH low at 0.015. T4 normal at 1.83. Decrease levothyroxine to 175 mcg. 07/13/24: TSH low at 0.056. Normal T4. Decreased dose to 150mcg. Recheck in 4 weeks. 08/10/24 2.120 11/05/24: TSH 1.95, normal T4 # Declined chlam/gc # Multiple large subchorionic hemorrhages * As of 08/10/24: 3 separate subchorionic hemorrhages, all of which have increased in size. The largest is in the lower uterine segment measuring 7.1 x 1.6 x 5.8 centimeters, previously 4.4 x 2.3 x 5.3 centimeters. There is a subchorionic hemorrhage superiorly to the right, measuring 4.0 x 1.2 x 2.9 centimeters, previously 2.8 x 1.9 x 1.2 centimeters. There is a left superior subchorionic hemorrhage measuring 4.0 x 2.0 x 1.2 centimeters, previously 2.3 x 1.3 x 0.7 centimeters. Ultrasounds: 07/23/24 [facility]. Recommendations included the following: * cell free DNA screening done on 07/23/24: negative, unknown sex * Colposcopy as scheduled in [place] * Patient is to have a prophylactic Shirodkar cerclage at [facility] by Dr. Mercer at ~15 weeks gestation * Level 2 US at 18-20 weeks at [facility] or [place] * 16-week US in [place] to f/u subchorionic hemorrhage 08/10/24: Finding of subchorionic hemorrhages as described above. 09/02/24 Level 2: Normal visualized anatomy. EFW 272 g at 49%ile. Anterior placenta, no previa. Three-vessel cord. MVP 3.4 cm. Cervix long/closed. 10/13/24: Normal echo 12/02/24: EFW 1672g at 15%ile, AC 15%ile, vertex, MVP 6.1cm 01/04/2025: BPP 6/8, SDP 7.3 cm, S/D ratio 3.2 (normal), BPD 25%, HC 14%, AC 4.7 %, FL <3%, EFW 5.2% Flu: 08/10/24 Covid: declines Tdap: 11/19/24 RSV: declines GBS (+): NKDA so recommend ampicillin for prophylaxis. OB - Problem Based A/P Delivery/Labor/Induction Plan Induction method: per misoprostol protocol OB Result Labs Blood Type: O (+) positive Rubella: immune RPR/VDLR: nonreactive GBS Status: positive HBsAG: negative OB Exam Physical Exam Vital signs: Temp Pulse BP Pulse Ox 98.5 F 71 135/87 100 01/04/25 20:41 01/04/25 20:40 01/04/25 20:40 01/04/25 19:19 Detailed Labor and Delivery Exam Patient Gravid: Yes Dilation (cm): 1 Cervix position: posterior Consistency: medium Fetus (Single) Amniotic Membrane Status: intact Heart Rate Baseline: 115 Monitor Accelerations: Present Monitor Decelerations: None Tax Processor Variability: Moderate (6-25)
[2025-01-04] MEDS: hydrOXYzine pamoate 25 MG CAPSULE 100 MG PO (23:46)
[2025-01-05] VITALS (21 sets, daily range): BP systolic 117–145; BP diastolic 63–86; PULSE 62–80; TEMP 36.9–37.6
[2025-01-05] MEDS: miSOPROStoL 25 MCG/0.25 TABLET VAGINAL ×3 (02:53→10:38)
[2025-01-05] MEDS: OMEPRAZOLE 20 MG CAPSULE DR PO (06:56)
[2025-01-05] MEDS: LEVOTHYROXINE 75 MCG TABLET 150 MCG PO (07:50)
--- NOTE | 2025-01-05 08:38 | PM.OBPNL ---
Subjective Time Seen by Provider: 07:15 Date Seen: 01/05/25 Narrative: Mary is a 34 yo woman at 36 6/7 weeks' gestation here for IOL for indication of IUGR in the setting of gestational hypertension. Thus far, she has had 3 doses of vaginal Cytotec for cervical ripening. She is not feeling strong contractions. She has no complaints. OB Problem List # New diagnosis of IUGR (EFW 5%) on 01/04/2025 #Gestational HTN dx at 36w0d at [facility] w/ cerclage removal - Normal preE labs 12/30 at [facility] # Cervical cancer 10/2022. FIGO stage 1B1 cervical cancer which was diagnosed in 2022 and treated at [facility] with conization and robotic assisted pelvic lymphadenectomy without chemotherapy or radiation. [id number] pap smears w/ ECC. #Vaginal Bleeding ?BARB mass on US [x] AM discussed with her [place] Veterinary Microbiologist Onc - concern is overall low but recommendations below [x] Colposcopy, biopsy of ANY suspicious lesion recommend by Veterinary Microbiologist Onc: Colposcopy normal on 07/24/2024. [x] Pelvic MRI on T3 machine recommended (scheduled 07/27 locally but this is only 1.5T) -continuing subchorionic hemorrhage and a lesion in the lower uterine segment that was adjacent to the endocervix that was thought to represent uterine contraction during imaging. Cervix appeared normal. Lesion did not appear to be cervical neoplasia. [x] [place] MRI 08/14/24: area of mildly increased T2 signal within the left lower cervical os.... Does not have typical MRI features of a cervical carcinoma. Findings may reflect edematous changes from the recent cerclage placement as well as prior conization especially in the setting of normal colposcopy 1 month ago. Subchorionic hemorrhage was also noted. #short cervix due to prior cone biopsy Wayne cerclage placed by Dr. Mercer 08/04/24. 6 knots at 12-1 o'clock. Cerclage removed 12/30 at [facility] *FYI they note cerclage was abnormal where they *think* it is all out, consider C/S if she does not dilate as anticipated* #FYI Vasovagals with cervical exam # IVF at [facility] in [place]. Unexplained infertility. On ASA, progesterone, estradiol; stopped E&P around 10 weeks. GIOVANNA based on embryo transfer: 01/27/25 Objective Exam: Gen - NAD Abd - Soft, NT, gravid SVE - 1 cm. Cervix is very anterior. The external os is firm and 1 cm. There is a space between external and internal os; I suspect that the outer cervix is scarred and the inner os is not, given the discrepancy in consistency. Length is thus difficult to determine. The internal os is softer but still only 1 cm. station is high, vertex. Notably, she has no vasovagal with this exam. Vital Signs: Last Vital Signs Temp 98.6 F 01/05/25 07:28 Pulse 62 01/05/25 07:29 BP 134/76 01/05/25 07:29 Pulse Ox 100 01/04/25 19:19 Comments: tracing: Baseline 120 / accelerations present / no decelerations / moderate variability. While frequent, small amplitude contractions are noted on monitor, these likely represent irritability; patient is not feeling these. Assessment Heart Rate Baseline: 115 Monitor Accelerations: Present Monitor Decelerations: None Tracing Comments: Category I GBS positive Labor Progress: Overall I must consider her cervix to still be unfavorable Maternal Status: Gestational HTN without severe features. Occasional mild elevations of BP continue. Normal HELLP labs at admit last night. Plan Plan: Fourth dose of vaginal Cytotec placed. Continuous monitoring. Begin ampicillin for GBS Repeat exam in 3 hours, likely for placement of another dose of Cytotec Repeat HELLP labs for any severe range BP.
[2025-01-05] MEDS: AMPICILLIN 2 GM in 0.9 % SODIUM CHLORIDE Mini-bag 100 ML IVPB (09:13)
[2025-01-05] MEDS: AMPICILLIN 1 GM in 0.9 % SODIUM CHLORIDE Mini-bag 100 ML IVPB ×3 (13:59→22:52)
--- NOTE | 2025-01-05 16:58 | PM.OBPNL ---
Subjective Time Seen by Provider: 16:15 Date Seen: 01/05/25 Narrative: Mary is a 34 yo woman at 36 6/7 weeks' gestation here for IOL for indication of IUGR in the setting of gestational hypertension. Thus far, she has had 5 doses of vaginal Cytotec for cervical ripening. She is not feeling strong contractions. She has no complaints. Of note, she has tolerated all cervical exams quite well. OB Problem List # New diagnosis of IUGR (EFW 5%) on 01/04/2025 #Gestational HTN dx at 36w0d at [facility] w/ cerclage removal - Normal preE labs 12/30 at [facility] # Cervical cancer 10/2022. FIGO stage 1B1 cervical cancer which was diagnosed in [address] [facility] with conization and robotic assisted pelvic lymphadenectomy without chemotherapy or radiation. [id number] pap smears w/ ECC. #Vaginal Bleeding ?BARB mass on US [x] AM discussed with her [place] Urban Redevelopment Specialist Onc - concern is overall low but recommendations below [x] Colposcopy, biopsy of ANY suspicious lesion recommend by Urban Redevelopment Specialist Onc: Colposcopy normal on 07/24/2024. [x] Pelvic MRI on T3 machine recommended (scheduled 07/27 locally but this is only 1.5T) -continuing subchorionic hemorrhage and a lesion in the lower uterine segment that was adjacent to the endocervix that was thought to represent uterine contraction during imaging. Cervix appeared normal. Lesion did not appear to be cervical neoplasia. [x] [place] MRI 08/14/24: area of mildly increased T2 signal within the left lower cervical os.... Does not have typical MRI features of a cervical carcinoma. Findings may reflect edematous changes from the recent cerclage placement as well as prior conization especially in the setting of normal colposcopy 1 month ago. Subchorionic hemorrhage was also noted. #short cervix due to prior cone biopsy Wayne cerclage placed by Dr. Mercer 08/04/24. 6 knots at 12-1 o'clock. Cerclage removed 12/30 at [facility] *FYI they note cerclage was abnormal where they *think* it is all out, consider C/S if she does not dilate as anticipated* # IVF at [facility] in [place]. Unexplained infertility. On ASA, progesterone, estradiol; stopped E&P around 10 weeks. GIOVANNA based on embryo transfer: 01/27/25 Objective Exam: Gen - NAD SVE - 1 cm. Cervix is very anterior. The external os is firm and 1 cm. There is a space between external and internal os; I suspect that the outer cervix is scarred and the inner os is not, given the discrepancy in consistency. Length is thus difficult to determine. The internal os is softer but still only 1 cm. station is high, vertex. Cook catheter was placed in aseptic technique. Initially, I attempted blind placement, but was unsuccessful. Thereafter, sterile speculum was placed and I visually placed catheter tip through the cervical os. Holding this in place, I removed the speculum and performed a vaginal exam. This revealed that the tip of the catheter was in the posterior fornix after passing through what I had perceived as the external os. There is a thickened band with the texture of vaginal tissue running from 2 to 7 o'clock along the left inferior cervix; it is as if the external cervix had previously torn away from the remaining endocervix. It is not bleeding. The catheter tip was reoriented anteriorly through the endocervix and inflated to 60 cc. I opted not to fill the ectocervical balloon and instead have the intrauterine balloon put on traction. Patient tolerated procedure with difficulty. Vital Signs: Last Vital Signs Temp 99 F 01/05/25 11:06 Pulse 74 01/05/25 15:07 BP 137/80 01/05/25 15:07 Pulse Ox 100 01/04/25 19:19 Comments: tracing: Baseline 130 / accelerations present / no decelerations / moderate variability. While frequent, small amplitude contractions are noted on monitor, these likely represent irritability; patient is not feeling these. Assessment Heart Rate Baseline: 115 Monitor Accelerations: Present Monitor Decelerations: None Tracing Comments: Category I GBS positive, on ampicillin Labor Progress: Her cervical anatomy is very abnormal. I believed that a portion of her ectocervix has detached from the endocervix and is now running in this band from 2-7 o'clock along the patient's left posterior cervix. This may have happened at the time of her cerclage removal or earlier, but it is not an acute tear, and is not actively bleeding. Maternal Status: Gestational HTN without severe features. Occasional mild elevations of BP continue. Normal HELLP labs at admit last night. Plan Plan: Am uncertain if her disrupted apparent ectocervix will dilate appropriately as her labor progresses. It may well effaced, stretch and dilate with the rest of the cervix. Alternatively, it may proved to be an obstruction to labor, or become disrupted during the labor process, leaving to cervical laceration and hemorrhage. I discussed the uncertainty of her case with her. I offered her now or continuation of cervical ripening with Cook catheter. When presented with these options, she opted to continue with cervical ripening. I will plan to leave the Cook catheter in place on traction for up to 12 hours. Again, intravaginal balloon was not inflated due to uncertainty on its impact on this disrupted band of appearance ectocervix. We will begin low-dose Pitocin for cervical ripening at 12:30 a.m.. The catheter is to be removed at 4:15 a.m., at which time we will begin Pitocin at the usual induction doses. I discussed her case with Dr. Aragon, who will be taking over care at 7:00 a.m.. We do have 2 units of blood typed and cross-matched in case of hemorrhage. Continuous monitoring. Continue ampicillin for GBS Repeat HELLP labs for any severe range BP.
[2025-01-05] MEDS: ACETAMINOPHEN 500 MG TABLET 1000 MG PO (19:52)
[2025-01-05] MEDS: ESCITALOPRAM 10 MG TABLET 20 MG PO (21:27)
[2025-01-05] MEDS: MORPHINE 10 MG/ML inj IM (22:51)
[2025-01-05] MEDS: hydrOXYzine pamoate 25 MG CAPSULE 100 MG PO (22:51)
[2025-01-06] VITALS (82 sets, daily range): BP systolic 98–172; BP diastolic 45–94; PULSE 58–95; RESP 16; TEMP 36.7–37.2; O2SAT 77–100
[2025-01-06] MEDS: OXYTOCIN 30 unit/500 ML in NS 30 UNIT/500 ML BAG IVPB (00:24)
[2025-01-06] MEDS: LACTATED RINGERS 1000 ML 1,000 ML 125 ML IV ×2 (02:54→11:37)
[2025-01-06] MEDS: AMPICILLIN 1 GM in 0.9 % SODIUM CHLORIDE Mini-bag 100 ML IVPB ×2 (04:00→07:56)
[2025-01-06 07:15] LABS: Hematocrit* 40.5 % (33.0-51.0); Hemoglobin* 13.3 gm/dL (12.0-16.0); Mean Corpuscular HGB Conc 33 gm/dL (32-36); Mean Corpuscular Hemoglobin 32 pg (26-34); Mean Corpuscular Volume 97 fL (80-100); Platelet Count* 217 K/uL (140-440); Red Blood Count* 4.18 m/uL (4.00-5.20); White Blood Count* 15.26 K/uL (4.50-11.00)
[2025-01-06 07:30] LABS: Alanine Aminotransferase* 17 U/L (4-35); Aspartate Amino Transferase* 35 U/L (12-35); Blood Urea Nitrogen* 12 mg/dL (5-24)
[2025-01-06 07:41] LABS: Slide Review Reflex No
[2025-01-06 07:49] LABS: INR 0.89 (0.91-1.10); Prothrombin Time 12.8 Seconds
[2025-01-06 07:50] LABS: Partial Thromboplastin Time* 29 Seconds (23-33)
[2025-01-06] MEDS: LEVOTHYROXINE 75 MCG TABLET 150 MCG PO (07:55)
[2025-01-06] MEDS: OMEPRAZOLE 20 MG CAPSULE DR PO (07:55)
[2025-01-06 08:24] LABS: Fibrinogen* 733 mg/dL (200-450)
[2025-01-06] MEDS: LABETALOL HCL 5 MG/ML inj IVP (08:55)
[2025-01-06] MEDS: MAGNESIUM IV 4 GM/100 ML PIGGYBACK IVPB (09:00)
[2025-01-06] MEDS: LIDOCAINE 2% (PF) 5 ML VIAL EPIDURAL (09:15)
[2025-01-06] MEDS: ROPIVACAINE 0.2% 100 ml 100 ML 10 MG EPIDURAL (09:15)
[2025-01-06] MEDS: MAGNESIUM Infusion 40 GM/1,000 ML IV.SOLN IVPB (09:31)
--- NOTE | 2025-01-06 09:32 | P.ANBPRC_ITS ---
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 What is your current living situation?: I presently have a place to live Problems where you live: no known problems In the past 12 months, utilities in danger of being shut off: no In past 12 months, lack of transportation kept you from medical appts, meetings, work, or getting things needed for daily living: no In the past 12 mos, have been you worried that your food would run out before you had money to buy more?: never true In the past 12 mos, the food you bought just didn't last and you didn't have money to buy more?: never true Smoking Status: Former smoker Do you use any of these nicotine containing products: Vaping Products Non-prescribed substance use: denies use How often does anyone, including family, friends and others, physically hurt you : never How often does anyone, including family, friends and others, insult or talk down to you: never How often does anyone, including family, friends and others, threaten you with harm: never How often does anyone, including family, friends and others, scream or curse at you: never Meds Home Medications and Allergies Home Medications ?Medication ?Instructions ?Recorded ?Confirmed ?Type cholecalciferol (vitamin D3) 125 125 mcg PO QDAY 01/20/24 01/04/25 History mcg (5,000 unit) capsule docosahexaenoic acid 200 mg mg PO DAILY 01/20/24 12/31/24 History capsule ( DHA) omeprazole 20 mg capsule,delayed 20 mg PO QDAY 08/10/24 01/04/25 History release aspirin 81 mg chewable tablet 81 mg PO QDAY 12/02/24 01/04/25 History Allergies Allergy/AdvReac Type Severity Reaction Status Date / Time Nitrofuran Analogues Allergy Verified 01/04/25 19:34 sulfamethoxazole (From Allergy Verified 01/04/25 19:34 Bactrim) trimethoprim (From Bactrim) Allergy Verified 01/04/25 19:34 Results Labs Labs: Laboratory Results - last 24 hr 01/06/25 07:07 WBC 15.26 H RBC 4.18 Hgb 13.3 Hct 40.5 MCV 97 MCH 32 MCHC 33 Plt Count 217 INR 0.89 L APTT 29 Fibrinogen 733 H BUN 12 AST 35 ALT 17 Vital Signs Vital Signs: Last Vital Signs Temp 98.9 F 01/06/25 00:38 Pulse 77 01/06/25 09:31 BP 136/80 01/06/25 09:31 Pulse Ox 96 01/06/25 09:29 Weight: 83.461 kg Height: 160.02 cm Anesthesia Procedures Epidural Insertion Patient Location: OB Start Time: 09:00 Stop Time: 09:40 Start Date: 01/06/25 Stop Date: 01/06/25 Reason for Block: primary anesthetic Patient Position: sitting Performed By: Guille Martinez Preanesthetic Checklist: IV checked, risks and benefits discussed, surgical consent, monitors and equipment checked, pre-op evaluation, timeout performed and anesthesia consent Prep: chlorhexidine gluconate Monitoring: blood pressure monitoring, quality assurance monitor final, continuous pulse oximetry and heart rate Approach: midline Vertebral Space: lumbar (1-5) Needle Type: Tuohy needle Injection Technique: continuous catheter (catheter) Needle gauge: 17 Needle Length (cm): 10 cm Needle Insertion Depth (cm): 5 Catheter Gauge: 19 Catheter Type: multi-orifice Catheter at skin depth (cm): 10 Test Dose Result: negative and lidocaine 1.5% with epinephrine 1 to 200,000
--- NOTE | 2025-01-06 10:31 | P.OBPN_ITS ---
Subjective Time Seen by Provider: 07:20 Date Seen: 01/06/25 Narrative: Mary is a 34yo at 37w0d GA ongoing IOL in the setting of growth restriction, gestational HTN, advanced maternal age, IVF , history of cervical cancer (status post conization), question of lower uterine segment mass early in with reassuring MRI at [facility] with her Band Top Maker Onc, history of shirodkar cerclage (status post removal at 36 weeks at [facility], some question of incomplete removal), hypothyroidism and anxiety. Mary is seen for routine rounding in cervical exam. Her induction course to present has included Cytotec vaginally x6, cook catheter placement with only the uterine balloon inflated to 60 mL and put traction overnight, and IV Pitocin. Bedside nurses notes she had bloody show with Cook removal and then an episode of a more bright red gush that did saturate a small pad at about 0630. Just prior to my presentation the bedside, she reported spontaneous rupture of membranes of clear fluid. Repeat labs were requested this morning in the setting of vaginal bleeding. Hemoglobin of 13.3, platelets of 217, INR is 0.89, a PTT of 29, fibrinogen of 733, Cr pending, AST 35 and ALT 17. Her blood pressures have been in the normal to mild range overnight. Denies headache, vision changes or right upper quadrant pain. Patient notes that her contractions are certainly more painful since SROM. She is considering analgesic methods, intends an epidural eventually. Limited review of systems otherwise negative. Objective Exam: General: Alert and oriented, no acute distress Psych: Appropriate mood and affect Cervix: External os palpates to be about 3 cm dilated likely represented by the disrupted portion previously described by Dr. Drummond, however her internal os is still only 1cm dilated. The internal os palpates like a small rubber band, does not feel like dense scar tissue nor can I palpate any appreciable suture material from her previous cerclage. My overall check is /-1. NST: Category 1 baseline of 120 beats per minute, moderate variability, several qualifying 15 x 15 accelerations present, absent decelerations. [place]: Painful contractions every 3 minutes Vital Signs: Last Vital Signs Temp 98.6 F 01/06/25 09:41 Pulse 81 01/06/25 10:21 BP 116/59 L 01/06/25 10:21 Pulse Ox 99 01/06/25 10:29 Assessment Heart Rate Baseline: 115 Monitor Accelerations: Present Monitor Decelerations: None Plan Plan: Mary is a 34yo at 37w0d GA ongoing IOL in the setting of growth restriction, gestational HTN, advanced maternal age, IVF , history of cervical cancer (status post conization), question of lower uterine segment mass early in with reassuring MRI at [facility] with her Band Top Maker Onc, history of shirodkar cerclage (status post removal at 36 weeks at [facility], some question of incomplete removal), hypothyroidism and anxiety. Induction course has included Cytotec x6, intrauterine balloon catheter and IV Pitocin. Her Pitocin is currently rounded rate of 12 milliunits per minute. SROM occurred at about 0700 this morning. Fortunately, Mary's cervical exam is noted to be unchanged. Her exam is certainly atypical, secondary to the likely detached portion of her ectocervix that was previously described by Dr. Drummond. Externally, it feels as though she may be 3 cm dilated but the internal os is still snug only 1cm dilated. I explained that her induction progress has been very atypical. I am concerned about the ability to adequately ripen her cervix despite Cytotec x6 and 12 hours with intrauterine balloon catheter. It is reassuring that SROM occurred, and Pitocin titration is ongoing. Still, given her history of cervical cold knife conization, cerclage, cortes of if the cerclage was completely removed and her abnormal course I think delivery is likely. I explained the strict definition for a failed induction of labor would include the above plus 24 hours of IV Pitocin and 18 hours with rupture of membranes. This time line would be at 0100 on 01/07/25. That said, I am concerned about her baseline risk for hemorrhage which is only increasing due to her prolonged induction course. Additionally, I question if prolonging her induction would be futile given the inability to affect dilation of the internal os at all since admission 36 hours ago. Mary agrees that she would not want to necessarily prolonged for induction to meet the strict criteria given the complexity of her care/delivery and risk for hemorrhage. After discussion, we mutually agree to continue IV Pitocin titration as tolerated for now. I am hopeful that if cervical dilation is going to occur that this will declare itself in the next few hours. Plan to recheck her cervix in about 4 hours, where if unchanged we will consider proceeding to . All questions answered.
[2025-01-06 10:43] LABS: Rapid Plasma Reagin (RPR) Non Reactive (Non Reactive)
[2025-01-06 11:15] LABS: Creatinine* 0.7 mg/dL (0.5-1.5); Est. Creatinine Clearance* 91.91; Estimated Glomerular Filt Rate 115 ml/min
--- NOTE | 2025-01-06 11:25 | PM.OBPNL ---
Subjective Time Seen by Provider: 11:40 Date Seen: 01/06/25 Narrative: Patient seen for routine exam. Since my last exam, she had sustained severe range blood pressures necessitating treatment with IV labetalol. She does meet criteria for preeclampsia with severe features, where magnesium sulfate was initiated for seizure prophylaxis. heart rate tracing has been intermittently category 2, with periods of minimal variability and intermittent late decelerations. As such, her Pitocin titration was reduced to half at 6 milliunits per minute at present. Patient notes she is feeling much better from a pain perspective status post epidural. She does not feel contractions at all. No ongoing vaginal bleeding. Objective Exam: General: Alert and oriented, no acute distress Cervix: Unchanged at /-1, where external os again feels more dilated and stretchy. No apparent change in dilation of the internal os, question if this simply represents scar tissue. NST: Category 2 with baseline of 130 beats per minute, minimal to moderate variability, rare 10x10 accelerations and intermittent late decelerations. Vital Signs: Last Vital Signs Temp 98.6 F 01/06/25 09:41 Pulse 63 01/06/25 11:22 BP 134/88 01/06/25 11:22 Pulse Ox 97 01/06/25 11:24 Assessment Heart Rate Baseline: 115 Monitor Accelerations: Present Monitor Decelerations: None Plan Plan: Mary is a 34yo at 37w0d GA ongoing IOL in the setting of growth restriction, gestational HTN now preE with SF, advanced maternal age, IVF , history of cervical cancer (status post conization), question of lower uterine segment mass early in with reassuring MRI at [facility] with her [facility], history of shirodkar cerclage (status post removal at 36 weeks at [facility], some question of incomplete removal), hypothyroidism and anxiety. Induction course has included Cytotec x6, intrauterine balloon catheter x12 hours, SROM and IV Pitocin. Unfortunately, her cervical exam remained unchanged with the internal os dilated to just 1 cm. I suspect that this represents dense scar tissue from her previous cold life conization, where I do not appreciate any retained suture from the cerclage. I explained that I do not have any other specific modalities to encourage cervical ripening. In addition, since our last exam her hypertensive disorder has progressed to preeclampsia with severe features. status changes been appreciated as well, where there is intermittent category 2 heart rate tracing for periods of minimal variability and intermittently decelerations. Her Pitocin has needed to be cut in half, bill category 2 at this time. Recommend we turn off Pitocin. I explained that I would recommend we proceed with a primary delivery in the setting of failed induction of labor with components of also worsening maternal and condition, given her pre with severe features and intermittent category 2 heart rate tracing. Strictly speaking, I did explain a failed induction time line could be considered to be prolonged for 18 hours of rupture but I do feel this would be futile in her case. Mary expresses understanding and is agreeable to plan. She feels at peace with the decision to proceed with , is happy she got to experience labor, SROM and really maximized her will options to encourage dilation. We discussed the risks, benefits and alternatives to primary in detail. I specifically counseled her about the risk of hemorrhage in a gravid uterus, which is also increased in her prolonged induction and possibly given her risk history of cervical cancer and lower uterine segment mass that was visualized earlier in . Of note, a pelvic MRI with her [place] gynecologic oncologist that was not concerning for recurrent cervical cancer. She had several colposcopies here, with 1 biopsy which was benign. Still, I explained potential etiologies behind hemorrhage and the medical and surgical steps we would utilize if encountered. We will aim to avoid Methergine in the setting of her preeclampsia with severe features. Plan to empirically administer 1 g of TXA time of delivery. We have 2 units of packed red blood cells cross-matched for Mary, she is agreeable to transfusion if needed. Discussed potential surgical steps if severe hemorrhage is encountered, where worse case scenario could include peripartum hysterectomy. In this rare event, we would aim to perform a complete total abdominal hysterectomy (rather than supracervical) given her history but again this would only be if conservative modalities fail. She expressed understanding and is agreeable to plan. With regard to antibiotics, plan to proceed with perioperative Ancef and azithromycin. Counseled on the risk of surgical site infection and deep pelvic infection after surgery. Counseled on the risk of damage to surrounding structures including uterus, tubes, ovaries, bowel, bladder, ureters and baby. All questions answered. Written surgical consent signed. PLATFORM OPERATIONS DIRECTOR to further consent patient for anesthetic component of care. Pediatrics [employer] to attend delivery in the setting of preeclampsia with severe features on magnesium and growth restriction. - Plan to proceed to the OR - Plan perioperative Ancef and azithromycin - Administer 1 g TXA IV at time of delivery - Blood type O positive, 2 units cross-matched and ready for transfusion if needed - Diligent blood pressure monitoring treatment ongoing. Last HELLP labs this morning with coags were within normal limits. Magnesium sulfate ongoing for seizure prophylaxis. - Pediatrics to attend delivery as above
[2025-01-06] MEDS: AZITHROMYCIN 500 MG in 0.9 % SODIUM CHLORIDE 250 ml 250 ML 255 MG IVPB (11:37)
[2025-01-06] MEDS: CEFAZOLIN 2 GM INJ IVP (12:00)
[2025-01-06] MEDS: TRANEXAMIC ACID 100 MG/ML INJ 1000 MG IV (12:21)
--- NOTE | 2025-01-06 13:03 | PM.OBPRCCS ---
Procedure Time Seen by Provider: 13:03 Date of procedure: 01/06/25 Post-op diagnosis: same Procedure Done: Global Will [facility] bill your pro fee for this procedure?: Yes Blood Loss Measurement Type: QBL ([id number]) Bakri Used: No IV fluids (mL): 900 Urine Output (mL): 75 Surgeon: Lien Aragon MD Anesthesia Type: Epidural Findings: Liveborn male fetus Unremarkable uterus, bilateral fallopian tubes and ovaries No apparent lower uterine segment/cervical mass that was previously described by US/MRI Procedure Name: Primary delivery Procedure Description: Patient was taken to the operating room with IV running. She received cefazolin and azithromycin in preoperative prophylaxis. Epidural anesthesia was previously administered and bolused. Gunter catheter was inserted. She was prepped and draped in the usual sterile fashion. Anesthesia was tested and found to be adequate. A low-transverse skin incision was made with a scalpel and carried through to the underlying layer of fascia with the scalpel. The subcutaneous fat was dissected off the underlying fascia with Bovie and blunt dissection. The fascia was nicked in the midline with a scalpel, and this incision was extended laterally with scissors. The rectus muscles were in the midline. Peritoneum was identified and entered bluntly. Bovie was used to widen this opening laterally. Sai O retractor was inserted and tightened down, providing excellent visualization of the lower uterine segment. The bladder reflection was advanced along the lower uterine segment. A bladder flap was created with a combination of sharp and blunt dissection. Low-transverse uterine incision was made with a scalpel. Incision was widened bluntly. The infant's head was grasped through the hysterotomy in OT position and elevated to the hysterotomy. The remainder of the body delivered without incident with the help of fundal pressure. No nuchal cord was noted. Cord was clamped and cut after 30 seconds. was handed off to attending nurses and DRAWER IN PLAIN LOOM. The placenta was delivered with gentle traction on the cord. IV TXA was requested and administered. IV Pitocin started. The uterus was cleaned of all clots and debris with the dry lap pad. The lower uterine segment was visually inspected due to US and MRI findings of a possible lower uterine segment mass earlier in her , visual inspection was unremarkable. The hysterotomy was reapproximated with 0 Vicryl in a running, locked fashion. Second layer of the same suture was used in imbricating fashion to obtain hemostasis. An additional [id number] suture was applied the left hysterotomy margin for additional hemostasis. Excellent uterine tone was noted, and hemostasis. The adnexa were examined and noted to be normal in appearance. The cul-de-sac and gutters were cleansed with dampened laparotomy sponge, removing any further clots and debris. The Sai O retractor was removed. The hysterotomy was reexamined and found to be hemostatic. The rectus muscles were examined and found to be hemostatic. The fascia was reapproximated with 0 Vicryl in a running fashion. Subcutaneous fat was irrigated and Bovie used on oozing vessels. The subcutaneous fat was reapproximated with 2 0 Vicryl suture in an interrupted fashion. The skin was closed with a subcuticular stitch of 3-0 monocryl. Surgical glue was applied above this. Patient tolerated procedure well was taken to recovery area in stable condition. Surgical debrief was completed. details: - Liveborn male fetus - No cord blood or gas was sent - weight: 5 lb 1oz - APGARs were 6 and 8 at 1 and 5 minutes respectively. Baby did receive PPV and CPAP intermittently for approximately 5 minutes post delivery. Please see documentation by JOSEFA Herron for complete details. Complications: None Pathology: specimen obtained, sent to pathology Surgery Debrief Performed: Yes Condition: stable Disposition: floor
--- NOTE | 2025-01-06 13:27 | P.ANES_ITS ---
Anesthesia Charges Start Date/Time Anesthesia Start Date: 01/06/25 Anesthesia Start Time: 11:54 Stop Date/Time Anesthesia Stop Date: 01/06/25 Anesthesia Stop Time: 13:20 Summary Emergency: POST ANESTHESIA CARE UNIT NURSE Coding CPT Codes CPT Codes: ANES/ANALG CS DELIVER ADD-ON - 13891 ([id number]) P2 - PATIENT W/MILD SYST DISEASE, QZ - POST ANESTHESIA CARE UNIT NURSE SVC W/O JUNIOR DESIGNER BY Additional Codes: Summary - Emergency: POST ANESTHESIA CARE UNIT NURSE ([id number])
--- NOTE | 2025-01-06 13:27 | W.ANESCHARGE ---
Anesthesia Charges Start Date/Time Anesthesia Start Date: 01/06/25 Anesthesia Start Time: 11:54 Stop Date/Time Anesthesia Stop Date: 01/06/25 Anesthesia Stop Time: 13:20 Summary Emergency: DIRECTOR TRANSLATIONAL Coding CPT Codes CPT Codes: ANES/ANALG CS DELIVER ADD-ON - 54852 ([id number]) P2 - PATIENT W/MILD SYST DISEASE, QZ - DIRECTOR TRANSLATIONAL SVC W/O MANAGER SOCIAL MEDIA BY Additional Codes: Summary - Emergency: DIRECTOR TRANSLATIONAL ([id number])
[2025-01-06 15:08] LABS: Hematocrit* 31.6 % (33.0-51.0); Hemoglobin* 10.7 gm/dL (12.0-16.0); Mean Corpuscular HGB Conc 34 gm/dL (32-36); Mean Corpuscular Hemoglobin 32 pg (26-34); Mean Corpuscular Volume 96 fL (80-100); Platelet Count* 191 K/uL (140-440); Red Blood Count* 3.31 m/uL (4.00-5.20); White Blood Count* 16.83 K/uL (4.50-11.00)
[2025-01-06 15:25] LABS: Blood Urea Nitrogen* 11 mg/dL (5-24); Creatinine* 0.6 mg/dL (0.5-1.5); Est. Creatinine Clearance* 107.23; Estimated Glomerular Filt Rate 119 ml/min
[2025-01-06 15:26] LABS: Alanine Aminotransferase* 16 U/L (4-35); Aspartate Amino Transferase* 32 U/L (12-35); Slide Review Reflex No
[2025-01-06 15:39] LABS: Magnesium* 4.8 mg/dL (1.5-2.6)
[2025-01-06] MEDS: NIFEdipine ER 30 MG TAB PO (16:18)
[2025-01-06] MEDS: KETOROLAC 30 MG/ML inj IVP (18:58)
[2025-01-06] MEDS: ESCITALOPRAM 10 MG TABLET 20 MG PO (18:58)
[2025-01-06 21:00] LABS: Hemoglobin* 10.5 gm/dL (12.0-16.0); Mean Corpuscular HGB Conc 34 gm/dL (32-36); Mean Corpuscular Hemoglobin 32 pg (26-34); Mean Corpuscular Volume 95 fL (80-100); Platelet Count* 209 K/uL (140-440); Red Blood Count* 3.25 m/uL (4.00-5.20); White Blood Count* 19.34 K/uL (4.50-11.00)
[2025-01-06 21:07] LABS: Slide Review Reflex No
[2025-01-06 21:21] LABS: Alanine Aminotransferase* 23 U/L (4-35); Aspartate Amino Transferase* 35 U/L (12-35); Blood Urea Nitrogen* 9 mg/dL (5-24); Creatinine* 0.6 mg/dL (0.5-1.5); Est. Creatinine Clearance* 107.23; Estimated Glomerular Filt Rate 119 ml/min
[2025-01-06 21:47] LABS: Magnesium* 5.4 mg/dL (1.5-2.6)
[2025-01-06] MEDS: ACETAMINOPHEN 500 MG TABLET 1000 MG PO (22:06)
[2025-01-06] MEDS: OXYCODONE 5 MG TABLET PO (22:06)
[2025-01-07] VITALS (10 sets, daily range): BP systolic 102–145; BP diastolic 62–82; PULSE 73–88; RESP 16; TEMP 36.4–36.8; O2SAT 96–99
[2025-01-07] MEDS: KETOROLAC 30 MG/ML inj IVP ×4 (01:03→18:57)
[2025-01-07 03:39] LABS: Hemoglobin* 9.9 gm/dL (12.0-16.0); Mean Corpuscular HGB Conc 34 gm/dL (32-36); Mean Corpuscular Hemoglobin 33 pg (26-34); Mean Corpuscular Volume 96 fL (80-100); Platelet Count* 192 K/uL (140-440); Red Blood Count* 3.02 m/uL (4.00-5.20); White Blood Count* 15.78 K/uL (4.50-11.00)
[2025-01-07 03:44] LABS: Slide Review Reflex No
[2025-01-07 03:54] LABS: Blood Urea Nitrogen* 8 mg/dL (5-24); Creatinine* 0.6 mg/dL (0.5-1.5); Est. Creatinine Clearance* 107.23; Estimated Glomerular Filt Rate 119 ml/min
[2025-01-07] MEDS: ACETAMINOPHEN 500 MG TABLET 1000 MG PO ×4 (03:54→23:27)
[2025-01-07] MEDS: OXYCODONE 5 MG TABLET PO ×3 (03:54→23:27)
[2025-01-07 03:55] LABS: Alanine Aminotransferase* 15 U/L (4-35); Aspartate Amino Transferase* 30 U/L (12-35)
[2025-01-07 04:01] LABS: Magnesium* 6.3 mg/dL (1.5-2.6)
[2025-01-07] MEDS: LACTATED RINGERS 1000 ML 1,000 ML 75 ML IV ×2 (04:07→11:18)
[2025-01-07] MEDS: MAGNESIUM Infusion 40 GM/1,000 ML IV.SOLN IVPB (05:31)
[2025-01-07] MEDS: OMEPRAZOLE 20 MG CAPSULE DR PO (06:59)
[2025-01-07] MEDS: LEVOTHYROXINE 75 MCG TABLET 150 MCG PO (07:00)
--- NOTE | 2025-01-07 07:45 | PM.OBPNVD1 ---
OB - PN:Subj Subjective Time Seen by Provider: 08:11 Date Seen: 01/07/25 Patient comments OB post-: pain well controlled and tolerating diet status: feeding status: exclusively Narrative: HPI: Mary is POD#1 from a primary LTCS for a failed IOL for gestational htn. Her BP became elevated , meeting criteria for preeclampsia with severe features. She is currently on Magnesium sulfate for seizure prophylaxis which is due to be discontinued at approximately 12:30Pm today. She is doing well on magnesium. She is nifedipine ER daily and BP has been under good control on this medication. Preeclampsia labs have all been normal. Pain is well controlled on current medications. She is tolerating a regular diet, not passing flatus and has ambulated a small amount in her room. She is . Denies nausea and bloating. No headache, right upper quadrant pain, visual disturbance or swelling. She states that she does feel tired on the magnesium but otherwise is doing well. OB - PN: Obj Exam Physical Exam: Vital signs: Temp Pulse Resp BP Pulse Ox O2 Del Method 97.6 F 77 16 104/62 97 Room Air 01/07/25 04:11 01/07/25 06:20 01/07/25 06:20 01/07/25 06:20 01/07/25 06:20 01/07/25 06:20 Narrative: General: Pleasant, , well groomed woman in no acute distress. Vital signs: Included in her electronic medical record. Heart: Regular rate and rhythm without gallop, rub or murmur. Chest: Clear to auscultation bilaterally. Abdomen: Soft, nontender and nondistended with normal bowel sounds throughout. Fundus firm at 2 cm below the umbilicus in the midline. Incision: Dressing in place and is clean, dry and intact. After dressing removed: Incision is clean, dry and intact with sutures and skin adhesive gel. Extremities: No pain. Edema: None. Neurologic: Deep tendon reflexes at bilateral patella are 2+/2 without clonus. OB - PN: Obj Data Labs Labs: Laboratory Results - last 24 hr 01/04/25 01/06/25 01/06/25 20:10 07:07 15:02 WBC 16.83 H RBC 3.31 L Hgb 10.7 L Hct 31.6 L MCV 96 MCH 32 MCHC 34 Plt Count 191 INR 0.89 L APTT 29 Fibrinogen 733 H BUN 11 Creatinine 0.7 0.6 Estimated Creat Clear 91.91 107.23 Estimated GFR 115 119 Magnesium 4.8 H* AST 32 ALT 16 RPR Screen Non Reactive Crossmatch (AHG) See Detail 01/06/25 01/07/25 20:55 03:05 WBC 19.34 H 15.78 H RBC 3.25 L 3.02 L Hgb 10.5 L 9.9 L Hct 31.0 L 29.0 L MCV 95 96 MCH 32 33 MCHC 34 34 Plt Count 209 192 INR APTT Fibrinogen BUN 9 8 Creatinine 0.6 0.6 Estimated Creat Clear 107.23 107.23 Estimated GFR 119 119 Magnesium 5.4 H* 6.3 H* AST 35 30 ALT 23 15 RPR Screen Crossmatch (AHG) OB - PN: A/P Delivery Assessment and Plan (1) Severe preeclampsia: Status: Acute Assessment and Plan: 1. Discontinue magnesium sulfate at approximately 12:30 p.m. today. 2. Continue nifedipine ER 30 mg daily. 3. Would repeat preeclampsia labs only if blood pressure increases after the magnesium was turned off as all of the labs have been normal in the last 24 hours. 4. Continue postoperative care. 5. consultation if patient requests. 6. Plan on discharge home tomorrow 01/08/2025 or Saturday01/09/2025 (2) Anemia due to acute blood loss: Status: Acute Assessment and Plan: 1. Iron supplement 1 tablet by mouth every other day ordered.
[2025-01-07] MEDS: DOCUSATE SODIUM 100 MG CAPSULE PO (08:56)
[2025-01-07] MEDS: FERROUS SULFATE 325 MG TABLET PO (08:56)
[2025-01-07] MEDS: NIFEdipine ER 30 MG TAB PO (08:57)
[2025-01-07 09:12] LABS: Hematocrit* 29.6 % (33.0-51.0); Mean Corpuscular HGB Conc 34 gm/dL (32-36); Mean Corpuscular Hemoglobin 33 pg (26-34); Mean Corpuscular Volume 96 fL (80-100); Platelet Count* 208 K/uL (140-440); Red Blood Count* 3.08 m/uL (4.00-5.20); White Blood Count* 16.49 K/uL (4.50-11.00)
[2025-01-07 09:25] LABS: Slide Review Reflex No
[2025-01-07 09:29] LABS: Blood Urea Nitrogen* 8 mg/dL (5-24); Creatinine* 0.6 mg/dL (0.5-1.5); Est. Creatinine Clearance* 107.23; Estimated Glomerular Filt Rate 119 ml/min
[2025-01-07 09:30] LABS: Alanine Aminotransferase* 16 U/L (4-35); Aspartate Amino Transferase* 32 U/L (12-35)
[2025-01-07 09:39] LABS: Magnesium* 6.7 mg/dL (1.5-2.6)
--- NOTE | 2025-01-07 10:27 | PM.ANPOST ---
Post Anesthesia Note Post Anesthesia Note Patient seen: Inpatient Respiratory Status: adequate Cardiovascular Status: adequate Mental Status: baseline Pain: adequate Temp: baseline Anesthetic awareness: N/A Complications: none Follow care: none
[2025-01-07] MEDS: ESCITALOPRAM 10 MG TABLET 20 MG PO (21:37)
[2025-01-08] MEDS: KETOROLAC 30 MG/ML inj IVP (03:13)
[2025-01-08] MEDS: SIMETHICONE 80 MG TAB.CHEW PO (03:24)
[2025-01-08 04:00] VITALS: BP 114/61; PULSE 70; RESP 16; TEMP 36.4; O2SAT 98
[2025-01-08] MEDS: LEVOTHYROXINE 75 MCG TABLET 150 MCG PO (07:13)
[2025-01-08] MEDS: OMEPRAZOLE 20 MG CAPSULE DR PO (07:13)
[2025-01-08] MEDS: ACETAMINOPHEN 500 MG TABLET 1000 MG PO (07:15)
[2025-01-08 08:02] VITALS: BP 110/72; PULSE 69; RESP 18; TEMP 36.6; O2SAT 97
[2025-01-08] MEDS: DOCUSATE SODIUM 100 MG CAPSULE PO (08:39)
[2025-01-08] MEDS: NIFEdipine ER 30 MG TAB PO (08:39)
--- NOTE | 2025-01-08 10:52 | PM.OBDSVD1 ---
DS: Providers Provider Time Seen by Provider: 08:00 Date Seen: 01/08/25 Date of admission: 01/04/25 19:01 Primary care physician: Not a Local Provider Admitting Clinician: Evy Headley MD Attending Physician on discharge: Evy Headley MD Date of Discharge: 01/08/25 DS: Diagnosis Discharge Diagnosis (1) S/P primary low transverse : Status: Acute Problem details: Failed IOL at 37 wks for gestational htn. SGA baby 5#1oz. Boy, Martin (2) Lactating mother: Status: Acute (3) Anemia due to acute blood loss: Status: Acute (4) Severe preeclampsia: Status: Acute (5) IUGR (intrauterine growth restriction) affecting care of mother: Status: Acute (6) H/O cone biopsy of cervix: Status: Acute Problem details: Cold knife cone biopsy of cervix December 2022 (7) Advanced maternal age (AMA) in : Status: Acute (8) Cervical cancer, FIGO stage IB1: Status: Acute Problem details: Pap with HPV testing and endocervical curettage every 6 months until definitive surgery. Exam Narrative: Exam Narrative: Physical exam: General: No acute distress Psych: Alert and oriented x4, full affect HEENT: Normocephalic, atraumatic Heart: Regular rate and rhythm, no murmur rub or gallop Lungs: Clear to auscultation bilaterally Abdomen: Soft, no tenderness, rebound, or guarding, no masses Incision(s): Appropriately tender to palpation. Clean, dry, and intact. No erythema, induration, or abnormal discharge/breakdown Skin: No lesions or rashes Lower extremities: Trace bilateral lower extremity edema Pelvic exam: Scant lochia Const: Vital Signs, click to edit/add: Vital Signs - 24 hr 01/07/25 12:20 01/07/25 16:20 01/07/25 20:55 Temperature 98.1 F 98.2 F 98.2 F Pulse Rate [Pulse Oximeter] 87 84 84 Respiratory Rate 16 16 16 Blood Pressure [Le ft Arm] 102/63 125/78 113/70 Pulse Oximetry 97 98 96 Oxygen Delivery Me thod Room Air Room Air Room Air 01/07/25 23:29 01/08/25 04:00 01/08/25 08:02 Temperature 97.5 F L 97.8 F Pulse Rate [Pulse Oximeter] 75 70 69 Respiratory Rate 16 16 18 Blood Pressure [Le ft Arm] 122/72 114/61 110/72 Pulse Oximetry 98 98 97 Oxygen Delivery Me thod Room Air Room Air Room Air OB - DS: Summary Hospital Course Hospital Course: Mary is POD#3 from a primary LTCS for a failed IOL. Her postoperative course has been complicated by preeclampsia with severe features. She is status post 24 hours of magnesium sulfate for seizure prophylaxis and 24 hours of monitoring off magnesium sulfate. Her blood pressure has been well controlled with nifedipine ER 30 mg QD. Preeclampsia labs have all been normal. Overnight patient had no complaints. Her pain is well controlled on oral pain medications. She is tolerating a regular diet. She has passed flatus. She is ambulating without difficulty. Lochia is scant. She is urinating without jasso. Patient denies chest pain, SOB, n/v, headache, RUQ pain, vision changes, dizziness. Discussed follow up. - Follow up in 5-7 days for incision check and BP check in clinic - Follow Up: follow-up at 2 weeks and 6 weeks in clinic Peripartum Data Procedures: Procedures Operation Date: 01/06/25 11:45 Actual Procedure Side Surgeon p Section Not Applicable Ariana Aragon MD [place] Gender: Male Time Spent with Patient Time attestation: Total time spent providing and/or coordinating discharge services: Discharge Plan Discharge Disposition: Home, Self-Care Date of Admission: 01/04/25 19:01 Attending Provider on Discharge: Lois Wolfe Consulting Providers: Noni Drummond Primary Care Provider: Provider,Not a Local Condition: Stable Anticipated Discharge Date/Time: 01/08/25 08:36 Discharge Medications: New acetaminophen 500 mg Tablet 1,000 mg PO Q6H PRN (Reason: Pain) 30 Days Qty: 60 0RF ferrous sulfate 325 mg (65 mg iron) Tablet 325 mg PO Q48H 30 Days Qty: 15 0RF docusate sodium 100 mg Capsule 100 mg PO DAILY 30 Days Qty: 30 0RF ibuprofen 600 mg Tablet 600 mg PO Q6H PRN (Reason: Pain) 30 Days Qty: 60 0RF Lanolin (HPA) 100 % Cream 1 applic topical Q1H PRN60 Days Qty: 21 0RF nifedipine 30 mg Tablet Extended Release 30 mg PO DAILY 30 Days Qty: 30 0RF oxycodone 5 mg Tablet 5 mg PO Q6H PRN (Reason: Pain) 14 Days Qty: 15 0RF simethicone 80 mg Tablet,Chewable 80 - 160 mg PO Q6H PRN30 Days Qty: 30 0RF Continued (DME) breast pump Device See Rx Instructions .Route Qty: 1 0RF Rx Instructions: As directed DHA 200 mg capsule 200 mg PO DAILY cholecalciferol (vitamin D3) 125 mcg (5,000 unit) capsule 125 mcg PO QDAY scopolamine base 1 mg over 3 days patch 3 day 1 patch transdermal Q3D PRN (Reason: motion sickness) Qty: 4 0RF omeprazole 20 mg capsule,delayed release(DR/EC) 20 mg PO QDAY hydroxyzine pamoate 50 mg capsule 50 mg PO Q8H Qty: 15 0RF levothyroxine 150 mcg tablet 150 mcg PO QDAY Qty: 30 3RF escitalopram oxalate 20 mg tablet 20 mg PO QDAY Qty: 60 1RF Discontinued aspirin 81 mg tablet,chewable 81 mg PO QDAY Discharge Orders: Discharge Order (Routine); Ordered 01/08/25 Ordered By: Lois Wolfe Patient Education: OB /Breast Feeding Additional Instructions: POSTOPERATIVE INSTRUCTIONS ACTIVITY No heavy lifting/pushing/pulling for 4-6 weeks. Do not lift anything more than about 10-15 lbs (such as laundry, groceries, children, pets), vacuum, push heavy doors or grocery carts, etc. You may climb stairs as tolerated. Do not put anything in the vagina for 6 weeks after surgery unless otherwise instructed by your doctor (including tampons, douching, sexual intercourse, etc). No driving for about 2 weeks after surgery, while you are taking narcotic pain medication, or until you feel that you are ready. Practice checking your blind spot and stepping hard on the brake. Avoid sitting or lying in bed for more than 2 hours at a time while you are awake to reduce your risk of blood clots. You may return to work when directed by your physician. Please contact your doctor if you need any return to work letters or medical leave paperwork to be completed. WOUND CARE You will have one large incision on your abdomen. There will be dissolvable stitches under your skin that do not need to be removed. Shower daily after surgery. Clean your incision with mild antibacterial soap and water. Pat your incision dry with a clean towel. No tub baths until wound is completely healed. Wash your hands frequently, especially before touching your incision, changing any dressings, after using the restroom, and before eating. PAIN MANAGEMENT Take your oral pain medication as needed. You should be taking Ibuprofen 600mg every 6 hours with 1 gram of Tylenol every 6 hours. You can take these together every six hours or alternate them every 3 hours. You should then take the oxycodone as needed if you have breakthrough pain on top of the Tylenol and Ibuprofen. Some pain medications can cause constipation so you should take a stool softener (i.e. colace) while you are on these medications. You may also take milk of magnesia or Miralax for constipation. WHAT TO EXPECT AT HOME Recovery from surgery is generally 4-6 weeks, but sometimes longer for more strenuous activity. It is normal to be very tired during this time. It is normal to have some drainage or a small amount of vaginal bleeding after surgery which may last up to 6 weeks. You may go home with a jasso catheter in your bladder. You will need to follow up for a nurse visit in 7-10 days for removal. You will most likely experience gas pain, abdominal swelling, or shoulder pain for 24-72 hours after surgery. A warm shower, heating pad, and/or walking may help. WHEN TO CALL YOUR DOCTOR : Fever (>100.4?F or 38.0?C) or chills. Incision problems such as redness, warmth, swelling, or foul smelling drainage. Painful, reddened area in your breast Severe headache that doesn't improve after taking medications Changes in vision, including temporary loss of vision, blurred vision, and/or light sensitivity Upper abdominal pain (usually under ribs on the right side) Severe nausea or persistent vomiting. Bright red vaginal bleeding (soaking >2 pad/hour) or foul smelling vaginal drainage. Severe pain not relieved with pain medication. Pain and swelling in your legs, especially if it is only on one side and not the other. Pain with urination, cloudy urine, or foul smelling urine. Difficulty in emotions, mood and functions Or if you have any other problems or questions. CALL 227 OR GO TO THE EMERGENCY ROOM IF YOU HAVE: Any shortness of breath, difficulty breathing, chest pain, thoughts of hurting yourself and/or Follow Up Appointments: Provider,Not a Local [Primary Care Provider] - Forms: [facility] Info Instructions
[2025-01-08] MEDS: IBUPROFEN 600 MG TABLET PO (11:00)
--- NOTE | 2025-01-14 12:07 | P.NB_ITS ---
Nerve Block Nerve Block Time Seen by Provider: 13:10 Date Seen: 01/06/25 Type of block requested by surgeon for post-operative analgesia: TAP Side: bilateral Time out performed: Yes Verification of patient name: Yes Verification of date of : Yes Site marking: site marked Name of person performing procedure: mantyl Continuous monitoring Was continuous monitoring of O2 sat, B/P, groundwater monitoring technician, recorded every 15 minutes?: Yes Procedure Checklist: sterile prep, needles and gloves Ultrasound guided. Images saved: Yes Medications given in 5ml increments after negative aspiration: Marcaine %: 0.25 mL: 30 and Exparel mL: 10 Patient tolerated procedure well: Yes Block Charges Block Charge (with Pro Fee): TAP Bilateral Use of Ultrasound Machine for Block: Yes- US Guidance/pain block
== END 2025-01-08 12:10 | disposition home or self-care (01) | DRG 540 ==
PROVIDERS: Obstetrics & Gynecology; Admitting Provider Obstetrics & Gynecology; Visit Provider Obstetrics & Gynecology
PROC: (CPT 59514; principal; 2025-01-06 11:30)
DX: O62.0 Primary inadequate contractions (principal); O13.4 Gestational [pregnancy-induced] hypertension without significant proteinuria, complicating childbirth; O14.14 Severe pre-eclampsia complicating childbirth; O76 Abnormality in fetal heart rate and rhythm complicating labor and delivery; O09.813 Supervision of pregnancy resulting from assisted reproductive technology, third trimester; O99.344 Other mental disorders complicating childbirth; F41.9 Anxiety disorder, unspecified; O99.214 Obesity complicating childbirth; C53.9 Malignant neoplasm of cervix uteri, unspecified; O90.81 Anemia of the puerperium; D62 Acute posthemorrhagic anemia; O99.284 Endocrine, nutritional and metabolic diseases complicating childbirth; E03.9 Hypothyroidism, unspecified; O26.873 Cervical shortening, third trimester; G89.18 Other acute postprocedural pain; O99.824 Streptococcus B carrier state complicating childbirth; Z3A.36 36 weeks gestation of pregnancy; Z37.0 Single live birth
CPT/HCPCS: 01967; 01968; 36415; 59200; 64488; 82565; 83735; 84450; 84460; 84520; 85018; 85027; 85384; 85610; 85730; 86592; 86850; 86900; 86901; 86922; 88307; 99140; A4314; A9270; C1726; J0290; J0456; J0665; J0666; J0690; J1100; J1885; J2270; J2371; J2405; J2590; J2795; J3010; J3475; J7050; J7120

== ENCOUNTER 2025-01-12 08:49 | Outpatient (CLI) | payer BC, SELFPAY ==
--- NOTE | 2025-01-12 11:21 | P.LACCB_ITS ---
Consult Note - Mom Date of Visit Date of visit: 01/12/25 Reason for consultation: Assistance Needed (baby stopped latching 3 days ago) Visit Code: Visit Patient's Information Phone number: [phone] : 2 Para: 1 Allergies Nitrofuran Analogues Allergy (Verified 01/12/25 10:39) sulfamethoxazole (From Bactrim) Allergy (Verified 01/12/25 10:39) trimethoprim (From Bactrim) Allergy (Verified 01/12/25 10:39) Mother's medical history: Hypothyroid Mother's Medical History: Medical History (Updated 01/12/25 @ 00:02 by Background [place]) Cervical cancer, FIGO stage IB1 ?C53.9 - Malignant neoplasm of cervix uteri, unspecified (ICD-10) Depression with anxiety ?F41.8 - Other specified anxiety disorders (ICD-10) Work Plans: return to work 12 weeks Delivery Information Delivery type: Primary C/S; Labored Gestational Age: 37 Gestational Weight For Age: SGA Weight: 2.3 kg Discharge Weight: 2.182 kg Percentage weight loss: 5.2 Baby's Information Baby's Age at Visit: 6 days Baby's Provider or Clinic: [facility] Jaundice: Yes Past Experience Past Experience: No Current Frequency of Day Feedings: every 3-4 hours Frequency of Night Feedings: same Both Breasts: No Latch: currently not latching Goals: 1 year Pumping Pumping: Yes Quantity Pumped: 50-100ml total between both breasts Supplementing EBM Supplement: Yes (taking 45-60ml/feeding) Formula Supplement: No Baby Elimination Number of Wet Diapers a Day: 6 yesterday Number of BM a Day: 5 yesterday; yellow and seedy Breast/Nipple Condition Breast Information: Breasts are symmetrical with rounded lower quadrants, intramammary distance is less than 1.5 inches. No erythema. Nipples are supple, everted prior to feeding. Breast Shape: Round Engorgement: No Maternal Nipple Condition - Left: Common Nipple and Short Maternal Nipple Condition - Right: Common Nipple and Short Sore Nipples: No Baby Assessment Skin: Normal and Yellow (face, shoulders) Tongue/frenulum: Restricted-frenulum attaches at tip of tongue, heart shaped (not quite tip of tongue, not exactly mid range either) Palate: Average Lips: Relaxed and Symmetrical Jaw Alignment: Symmetrical Mucosa: [place], moist Onsite Observation Pre-Feed weight: 2.218 kg (up 84gms in 2 days) Position: Cross cradle Attachment/latch-on achieved: Not achieved Suck pattern: Latched, but no sucking, audible swallows Pre-Nursing Left Nipple: Within Normal Limits Pre-Nursing Right Nipple: Within Normal Limits Assessments/Interventions Assessments/Interventions: Tongue assessment: TABBY assessment;score of 5. Tongue tip rounded, mid gum fixed, sides of tongue up but middle held down, tongue can cross gum line, but not lip Baby able to cnc grinder gloved finger and suck, but cannot maintain suction between tongue and roof of mouth. observation: Randee fussy at the breast; attempts to latch but won't suck despite repositioning with deeper latch and asymmetric technique Attempted to latch with nipple shield for easier cnc grinder without success Attempted latch with nipple shield and EBM behind shield, still without success Bottle feeding observation: Randee has difficult time latching to the bottle to drink, sucks a few times and then releases bottle from mouth and cries As sucking, milk drips out of corners of mouth. Showed parents how to give some chin support to help with maintaining suction. Education provided: Early feeding cues to maximize timing of latching, Asymmetric latch technique for wide/deep latch to increase milk, Transfer for baby and increase comfort for mom, Supply/demand nature of milk supply, Need for frequent stimulation/milk removal, Alternative feeding methods (SNS, cup, finger feeding, bottling), Use of nipple shield and Pumping for milk management Handouts Provided: Suck learning exercises-given and reviewed Alternative therapies - consider craniosacral therapy Dental providers for potential posterior tongue tie release Feeding Plan: Breastfeed attempts on each breast as able, discussed use of nipple shield as he is learning to use his tongue after release (will discuss anterior release with Dr. Berry today; consider posterior release if needed) Pump both breasts for: 15-20? minutes after each feeding; a full 20 minutes if pumping instead of Feed baby 45-60 ml of pumped milk? every 2-3 hours based on feeding cues, no longer than 4 hours between feeds until back to birthweight Use a syringe/feeding tube, cup, or bottle for feedings based on preference Rest, and repeat every 2-3 hours, watch for early feeding cues Try skin to skin to increase milk production and success with latching Discussed trying different positions to increase success with latching as well Discussed role of anterior tongue tie release, posterior tongue tie laser, craniosacral therapy, help for feeding success Follow-Up Suggested follow up: Appointment in 1 week (as needed for f/u following tongue clipping that will be discussed at clinic appt today) Time Spent Time spent with patient (min): 90 (reviewing EMR and face to face with patient, and their ) Meds Home Medications and Allergies Home Medications ?Medication ?Instructions ?Recorded ?Confirmed ?Type cholecalciferol (vitamin D3) 125 125 mcg PO QDAY 01/20/24 01/12/25 History mcg (5,000 unit) capsule docosahexaenoic acid 200 mg 200 mg PO DAILY 01/20/24 01/12/25 History capsule ( DHA) omeprazole 20 mg capsule,delayed 20 mg PO QDAY 08/10/24 01/12/25 History release Allergies Allergy/AdvReac Type Severity Reaction Status Date / Time Nitrofuran Analogues Allergy Verified 01/12/25 10:39 sulfamethoxazole (From Allergy Verified 01/12/25 10:39 Bactrim) trimethoprim (From Bactrim) Allergy Verified 01/12/25 10:39
== END 2025-01-12 08:50 | disposition home or self-care (01) ==
LOC: OB LAC 08:49
PROVIDERS: Visit Provider Obstetrics & Gynecology
DX: Z39.1 Encounter for care and examination of lactating mother (principal)
CPT/HCPCS: G0463

== ENCOUNTER 2025-02-26 11:10 | Outpatient (CLI) | payer BC, SELFPAY ==
[2025-02-28 12:23] LABS: HPV Source Cervical; HPV, High Risk by TMA Not Detected
== END 2025-02-26 11:11 | disposition home or self-care (01) ==
PROVIDERS: Visit Provider Obstetrics & Gynecology
DX: Z08 Encounter for follow-up examination after completed treatment for malignant neoplasm (principal); Z85.41 Personal history of malignant neoplasm of cervix uteri; Z12.4 Encounter for screening for malignant neoplasm of cervix; Z11.51 Encounter for screening for human papillomavirus (HPV)
CPT/HCPCS: 87624; 87625; 88141; 88142